=== PATIENT | female | born 1945 | race Asian ===

== ENCOUNTER 2018-12-30 10:25 | Inpatient (IN) ==
--- OUTSIDE RECORDS SUMMARY | 2018-12-30 10:28 | External Medical Summary | Continuity of Care Document ---
:1945 Author Name Benjamín Johnson, Provider Address Unavailable Unavailable , Care Team Providers Name Role Phone Sohail Vasques [email or web address], UNKNOWN Unavailable Unavailable Unavailable Unavailable Unavailable Problems SOB (shortness of breath) (786.05) (R06.02) Cough (786.2) (R05) Pulmonary nodule (793.11) (R91.1) Multiple thyroid nodules (241.1) (E04.2) Osteoporosis, unspecified osteoporosis t ype, unspecified pathological fracture presence (733.00) (M81.0) Hyperlipidemia, unspecified hyperlipidemia type (272.4) (E78 .5) Multiple pulmonary nodules (793.19) (R91.8) Aspiration pneumonia (507.0) (J69.0) Weight loss (783.21) (R63.4) Allergies and Adverse Reactions No Known Allergies (Allergy) Medications No Reported Medications Refills: 0 Procedures History of esophagectomy Status: Complet ed Immunizations Prevnar 13 Intramuscular Suspension On: 13-Mar-2018 14:28 Lot #: [id number], [employer] [place] Social History - Smoking Status Never smoker Plan of Treatment Planned Observations Planned Goals not documented Results No Known Results Results not documented Encounters Appointment; Sohail Vasques M.D. 08-May-2018 13:30 Encounter Diagnosis: Problem not documented Appointment; Sohail Vasques M.D. 13-Mar-2018 13:00 Encounter Diagnosis: Problem not documented
[2018-12-30] MEDS ORDERED: ONDANSETRON INJ 2 MG/ML 2 ML VIAL IV STA (11:20)
[2018-12-30] MEDS ORDERED: SODIUM CHLORIDE 0.9% 1000ML 1,000 ML IV ONE (11:20)
[2018-12-30] MEDS ORDERED: MoRPHine SULFATE 2 MG/ML CARP IV STA (11:24)
[2018-12-30 11:28] LABS: Basophils # (auto) 0.02 K/uL (0-0.2); Basophils % (auto) 0.2 %; Hematocrit (blood only) 41.8 % (37-47); Hemoglobin 13.9 g/dL (12.0-16.0); Immature Granulocytes # (auto) 0.04 K/uL (0.00-0.02); Immature Granulocytes % (auto) 0.3 %; Lymphocytes # (auto) 0.62 K/uL (1.2-3.4); Lymphocytes % (auto) 4.8 %; Mean Corpuscular Hgb Conc 33.3 g/dL (32-36); Mean Corpuscular Volume 97.2 fL (80-100); Mean Platelet Volume 10.8 fL (7.4-10.4); Monocytes # (auto) 0.66 K/uL (0.11-0.59); Monocytes % (auto) 5.1 %; Neutrophils # (auto) 11.51 K/uL (1.4-6.5); Neutrophils % (auto) 89.6 %; Platelet Count 216 K/uL (130-400); RDW Coefficient of Variation 14.2 % (11.5-14.5); RDW Standard Deviation 50.4 fL (36.4-46.3); White Blood Count 12.85 K/uL (4.8-10.8)
[2018-12-30 11:33] LABS: Appearance Urine Clear (Clear); Bacteria Urine Automated Negative (Negative); Bilirubin Urine Negative (Negative); Blood Urine Negative (Negative); Color Urine Dark Yellow; Epithelial Cell Urine Auto >30 /lpf (0-5); Glucose Urine UA Trace (Negative); Ketones Urine Trace (Negative); Leukocyte Esterase Urine Negative (Negative); Nitrite Urine Negative (Negative); Protein Urine 2+ (Negative); RBC Urine Automated 0-4 /hpf (0-4); Specific Gravity Urine 1.029 (1.000-1.030); Urobilinogen Urine Negative (Negative); pH Urine 5.5 (4.5-7.5)
[2018-12-30 12:09] LABS: Alanine Aminotransferase 51 U/L (12-78); Albumin Globulin Ratio 0.9 (0.9-2); Albumin Level 3.9 gm/dl (3.4-5.0); Alkaline Phosphatase 65 U/L (45-117); Aspartate Aminotransferase 25 U/L (15-37); BUN Creatinine Ratio 21.3 (10-20); Bilirubin,Total 1.2 mg/dl (0.2-1); Blood Urea Nitrogen 20 mg/dl (7-18); Carbon Dioxide 24 mmol/L (21-32); Chloride 108 mmol/L (98-107); Est GFR (African American) 71.7; Est GFR (Non-African American) 61.8; Globulin 4.4 gm/dl (2.5-4.0); Glucose 157 mg/dl (70-99); Potassium 4.1 mmol/L (3.5-5.1); Sodium 140 mmol/L (136-145); Total Protein 8.4 gm/dl (6.4-8.2)
[2018-12-30] MEDS ORDERED: IOVERSOL 100ml IV PRN (12:54)
--- NOTE | 2018-12-30 13:20 | CT Scan Report ---
CT abd pelvis IV con only CLINICAL HISTORY: Diffuse abdominal pain ESOPHAGEAL CARCINOMA COMPARISON STUDY: Temperature 2018 TECHNIQUE: The patient was scanned in a dynamic helical fashion during intravenous administration of 94 cc of Optiray 320. A dose lowering technique was utilized adhering to the principles of ALARA. CT DOSE: FINDINGS: Lower chest: There are postsurgical changes of esophagectomy and gastric pull-through. The stomach is located within the left anterior mediastinum. There is respiratory motion artifact. There are tree-i n-bud opacities within the right middle lobe and left lower lobe, likely inflammatory/postinflammator y. Liver: There are multiple water density hepatic lesions consistent with cysts. Gallbladder: Unremarkable. Spleen: Normal in size and attenuation. Pancreas: No focal pancreatic masses are visualized. The pancreatic duct is at the upper limits of no rmal in diameter measuring 3 mm. Adrenal glands: Unremarkable. Kidneys: There are bilateral renal hypodensities, unchanged from the prior study and most consistent with cysts. There is mild fullness of each renal collecting system. There is a 5 mm proximal left ure teral calculus. There are probable nonobstructing right renal calculi. Bowel: There is a distended duodenum and proximal jejunum with equalization. There is a proximal jeju nal transition zone with an area of prominent mucosal enhancement. The findings are indicative of a h igh-grade proximal jejunal obstruction. The ileum and mid and distal jejunum are of normal caliber. Peritoneum: There is trace ascites. There is no free intraperitoneal air. Vasculature: The abdominal aorta is normal in course and caliber. Adenopathy: None. Pelvic viscera: The bladder, and pelvic viscera are unremarkable. Skeletal structures: No destructive osseous lesions are seen. IMPRESSION: 1. High-grade partial bowel obstruction at the level of the proximal jejunum. 2. Postsurgical changes of esophagectomy with gastric pull-through. 3. Tree-in-bud opacities within the right middle lobe and left lower lobe, likely inflammatory/postin flammatory 4. 5 mm proximal left ureteral calculus with mild secondary obstructive changes Electronically signed by: Kayden Hernandez M.D. 12/30/2018 1:19 PM
--- NOTE | 2018-12-30 14:54 | History & Physical Report ---
Date of Service December 30, 2018 Assessment & Plan (1) Small bowel obstruction: High-grade proximal jejunal obstruction seen on CT scan. Keep n.p.o. Place NG tube if vomiting recurs. IV fluids. Surgical consultation Present on Admission?: Yes (2) History of esophageal cancer: Status post distal esophagectomy with pull-through in October 2017 in [facility]. Present on Admission?: Yes (3) DVT prophylaxis: Lovenox subcu History of Present Illness Chief Complaint: Abdominal pain, nausea, intermittent vomiting Primary Care Provider: Cesar Michelle MD 73-year-old female of descent who developed abdominal discomfort in the upper abdominal region yesterday associated with nausea. She did vomit a small amount several times. She had a normal bowel movement yesterday. No hemat emesis melena or hematochezia. She has had previous distal esophagectomy with gastric pull-through in [facility] in October 2017. She was hospitalized last fall for a partial small bowel obstruction. CT scan today reveals evidence of high-grade small bowel obstruction in the region of the proximal jejunum. The patient has not vomited since she has been in our ED and NG tube has not been placed at this time. Surgical consultation has been requested. She will be kept n.p.o. and given IV fluids. Hopefully the small bowel obstruction will resolve spontaneously without surgery. Allergies Allergy/AdvReac Type Severity Reaction Status Date / Time clindamycin AdvReac Severe Unknown Unverified 12/30/18 11:47 Home Medications Home Medications Medication Instructions Recorded Confirmed Type vitamin J92-srqmd acid 1 tab PO DAILY 12/30/18 12/30/18 History Past Med/Surg History Medical History Esophageal carcinoma Status post esophagectomy in October 2017 HLD (hyperlipidemia) Multiple lung nodules Multiple thyroid nodules Benign per biopsy results Osteoporosis ST segment changes on electrocardiogram Small bowel obstruction Surgical History History of esophagectomy October 2017, entire [facility] Social History Preferred Language: Mandarin Icelandic 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 Nausea. Intermittent vomiting. No diarrhea. No melena or hematochezia or hematemesis -no urinary retention, no urinary incontinence, no dysuria, no hematuria Musculoskeletal-no joint pain, no muscle tenderness Skin-no bruising, no rashes, no pruritus Neuro-no isolated weakness, no paresthesia, no weakness Psych-no depression, no anxiety Physical Exam Physical Exam: General-alert and oriented x3, no fevers, no chills HEENT-head atraumatic and normocephalic, TMs intact bilaterally, pupils equal and reactive to light, extraocular muscles intact Neck-no lymphadenopathy or thyromegaly, trachea midline Chest-clear to auscultation percussion. No rales wheezing or rhonchi Cardiac-regular rate and rhythm, normal S1 and S2, no murmurs Abdomen-normal bowel sounds, no hepatosplenomegaly. Mild epigastric and right upper quadrant tenderness. No palpable masses. No rebound or guarding Extremities-no cyanosis, clubbing, or edema Neuro-cranial nerves II through XII intact, motor and sensory function within normal limits, strength symmetrical 5/5, no focal deficits Psych-normal affect, normal mood Results & Data Vital Signs (Past 12 Hours) Vital Signs Temp Pulse Resp BP Pulse Ox 12/30/18 13:40 80 23 99 12/30/18 13:30 80 21 98 12/30/18 13:20 77 15 98 12/30/18 13:10 83 22 98 12/30/18 13:02 85 14 130/73 98 12/30/18 13:01 85 21 12/30/18 12:40 83 21 100 12/30/18 12:30 81 22 100 12/30/18 12:20 78 19 100 12/30/18 12:10 80 21 99 12/30/18 12:00 77 22 136/76 99 12/30/18 11:50 75 16 96 12/30/18 11:40 77 14 98 12/30/18 11:33 72 25 H 97 12/30/18 11:31 73 14 135/82 97 12/30/18 10:44 37.0 C 77 20 147/84 H 98 Laboratory Results 12/30/18 11:17 12/30/18 11:17 PG Care Time/CCT Total # of Minutes Spent Total Time Spent with Patient: Total time spent is greater than 50% in coordination of care (as documented) at patient's floor/unit and/or counseling patient:
--- NOTE | 2018-12-30 15:31 | Surgery Consultation ---
Date of Consultation December 30, 2018 Assessment & Plan (1) Small bowel obstruction: 73 year-old female with history of esophagectomy with gastric pull through in 10/2017 and history of SBO in 02/2018 who presented to emergency department with complaint of abdominal pain, bloating, n/v for [address] scan showing high grade small bowel obstruction with transition point in the proximal jejunum with enhancement of mucosa (similar findings to CT scan in 02/2018) treated conservatively with last SBO. Mild leukocytosis of 12.85K, vitals stable, abdomen soft, mildly distended, tender in epigastrium, no rigidity, guarding, rebound, or peritonitis. Plan: Recommend conservative treatment for SBO: NPO, bowel rest, IV fluids, IV pain management prn, IV Zofran prn nausea. Would recommend NGT if any further vomiting or increase in abdominal distention. follow labs while NPO SCDs and Lovenox for DVT prophylaxis continue medical management will follow along. Dr. Glover has seen and examined pt, agrees with above. Supervising Physician Co-Signing Physician Notes I interviewed and examined this patient I agree with the above note. This is the second episode of this in 9 months. The first was successfully treated with conservative measures and I would attempt that now. The patient and her stated that if surgery is necessary they would prefer to go to 1 of the medical centers. History of Present Illness Reason for Consultation: High grade SBO Requesting Physician: Dr. Posadas Attending Physician: Dr. Carrion History of Present Illness Ambar is a pleasant 73 year-old female who speaks very little Syriac who presented to emergency department with complaint of abdominal pain, bloating, nausea and vomiting that began yesterday morning. Friend in room who helped to interpret. Pain located in upper mid abdomen. Had bowel movement yesterday morning prior to pain starting. Has not had bowel movement or passed any gas since. Has history of esophagectomy with gastric pull through in October of 2017 in [facility]. She states she did not have cancer but she had really bad acid reflux and if left alone would turn into cancer. Also has history of SBO in February of last year in which she was admitted and treated conservatively with NGT, bowel rest, and pain management.( per electronic records). CT scan in February showed high grade SBO at proximal jejunum with hyperenhancement and distended duodenum. CT scan of abdomen and pelvis today showing similar findings. She has mild leukocytosis of 12.85K. H&H stable. Vital stable. Pain on presentation was about 9/10. No current pain after pain medication administration. No further nausea or vomiting. Comfortable currently. Allergies Allergy/AdvReac Type Severity Reaction Status Date / Time clindamycin AdvReac Severe Unknown Unverified 12/30/18 11:47 Home Medications Home Medications Medication Instructions Recorded Confirmed Type vitamin K88-pbyhs acid 1 tab PO DAILY 12/30/18 12/30/18 History Patient History Medical History History of esophageal cancer (Chronic) Small bowel obstruction (Acute) Esophageal carcinoma Status post esophagectomy in October 2017 HLD (hyperlipidemia) Multiple lung nodules Multiple thyroid nodules Benign per biopsy results Osteoporosis ST segment changes on electrocardiogram Small bowel obstruction Surgical History History of esophagectomy October 2017, entire [facility] Social History Preferred Language: Mandarin Nigerian Communication Ability: Effective Communication Ability Comment: MOGL Communication Tools: IPad Cannon Crewmember Required: Yes, Video and Voice Beliefs That Will Affect Care: Orthodoxy Orthodoxy Beliefs: Church Current Living Situation: Alone Other Information That Helps Us Care for You: No Feels Safe at Home: Yes Safety Concerns: Feels Safe At This Time Smoking Status: Never smoker Do You Dip or Chew Tobacco: No Second Hand Exposure: No Tobacco Cessation Education Requested by Patient: No Hx Alcohol Use: No Hx Substance Use: No Review of Systems Review of Systems: All systems reviewed & are unremarkable except as noted in HPI & below Physical Exam Constitutional: WD/WN, vitals as above + thin Respiratory: normal respiratory effort; no respiratory distress Cardiovascular: RRR, no murmur, no edema Chest (Breasts): Additional Comments: midline sternotomy scar present Gastrointestinal (Abdomen): Inspection/Auscultation: + abdomen distended (mildly distended); + abnormal bowel sounds (hypoactive) Percussion/Palpation: + abdomen tender (epigastrium) and abdomen soft; no guarding and abdomen not rigid Skin: no rashes, warm and dry Psychiatric: A+Ox3, euthymic affect Results & Data Vital Signs (Past 12 Hours) Vital Signs Temp Pulse Resp BP Pulse Ox 12/30/18 15:20 76 18 98 12/30/18 15:10 78 19 98 12/30/18 15:00 77 26 H 132/72 96 12/30/18 14:50 78 22 99 12/30/18 14:40 77 24 100 12/30/18 14:30 77 18 97 12/30/18 14:20 79 18 99 12/30/18 14:10 78 16 100 12/30/18 14:00 79 17 137/78 100 12/30/18 13:50 78 18 100 12/30/18 13:40 80 23 99 12/30/18 13:30 80 21 98 12/30/18 13:20 77 15 98 12/30/18 13:10 83 22 98 12/30/18 13:02 85 14 130/73 98 12/30/18 13:01 85 21 12/30/18 12:40 83 21 100 12/30/18 12:30 81 22 100 12/30/18 12:20 78 19 100 12/30/18 12:10 80 21 99 12/30/18 12:00 77 22 136/76 99 12/30/18 11:50 75 16 96 12/30/18 11:40 77 14 98 12/30/18 11:33 72 25 H 97 12/30/18 11:31 73 14 135/82 97 12/30/18 10:44 37.0 C 77 20 147/84 H 98 Laboratory Results 12/30/18 12/30/18 12/30/18 Range/Units 11:17 11:17 11:17 WBC 12.85 H (4.8-10.8) K/uL RBC 4.30 (4.2-5.4) M/uL Hgb 13.9 (12.0-16.0) g/dL Hct 41.8 (37-47) % MCV 97.2 (80-100) fL MCH 32.3 (25-34) pg MCHC 33.3 (32-36) g/dL RDW Std Deviation 50.4 H (36.4-46.3) fL RDW Coeff of Jimenez 14.2 (11.5-14.5) % Plt Count 216 (130-400) K/uL MPV 10.8 H (7.4-10.4) fL Immature Gran % (Auto) 0.3 % Neut % (Auto) 89.6 % Lymph % (Auto) 4.8 % Archer % (Auto) 5.1 % Eos % (Auto) 0.0 % Baso % (Auto) 0.2 % Immature Gran # (Auto) 0.04 H (0.00-0.02) K/uL Neut # (Auto) 11.51 H (1.4-6.5) K/uL Lymph # (Auto) 0.62 L (1.2-3.4) K/uL Archer # (Auto) 0.66 H (0.11-0.59) K/uL Eos # (Auto) 0.00 (0-0.5) K/uL Baso # (Auto) 0.02 (0-0.2) K/uL Sodium 140 (136-145) mmol/L Potassium 4.1 (3.5-5.1) mmol/L Chloride 108 H (98-107) mmol/L Carbon Dioxide 24 (21-32) mmol/L Anion Gap 8.0 (3-11) BUN 20 H (7-18) mg/dl Creatinine 0.93 (0.6-1.2) mg/dl Est Cr Clr Drug Dosing Not Reportable Est GFR ( Amer) 71.7 Est GFR (Non-Af Amer) 61.8 BUN/Creatinine Ratio 21.3 H (10-20) Glucose 157 H (70-99) mg/dl Calcium 9.0 (8.5-10.1) mg/dl Total Bilirubin 1.2 H (0.2-1) mg/dl AST 25 (15-37) U/L ALT 51 (12-78) U/L Alkaline Phosphatase 65 (45-117) U/L Total Protein 8.4 H (6.4-8.2) gm/dl Albumin 3.9 (3.4-5.0) gm/dl Globulin 4.4 H (2.5-4.0) gm/dl Albumin/Globulin Ratio 0.9 (0.9-2) Lipase 604 H (73-393) U/L Specimen Hemolysis Urine Color Dark Yellow Urine Appearance Clear (Clear) Urine pH 5.5 (4.5-7.5) Ur Specific [place] 1.029 (1.000-1.030) Urine Protein 2+ H (Negative) Urine Glucose (UA) Trace H (Negative) Urine Ketones Trace H (Negative) Urine Blood Negative (Negative) Urine Nitrite Negative (Negative) Urine Bilirubin Negative (Negative) Urine Urobilinogen Negative (Negative) Ur Leukocyte Esterase Negative (Negative) Urine WBC (Auto) 5-10 H (0-5) /hpf Urine RBC (Auto) 0-4 (0-4) /hpf U Hyaline Cast (Auto) 10-30 H (0-5) /lpf U Epithel Cells (Auto) >30 H (0-5) /lpf Urine Bacteria (Auto) Negative (Negative) Diagnostic Findings CT abd pelvis IV con only CLINICAL HISTORY: Diffuse abdominal pain ESOPHAGEAL CARCINOMA COMPARISON STUDY: Temperature 2018 TECHNIQUE: The patient was scanned in a dynamic helical fashion during intravenous administration of 94 cc of Optiray 320. A dose lowering technique was utilized adhering to the principles of ALARA. CT DOSE: FINDINGS: Lower chest: There are postsurgical changes of esophagectomy and gastric pull- through. The stomach is located within the left anterior mediastinum. There is respiratory motion artifact. There are tree-in-bud opacities within the right middle lobe and left lower lobe, likely inflammatory/postinflammatory. Liver: There are multiple water density hepatic lesions consistent with cysts. Gallbladder: Unremarkable. Spleen: Normal in size and attenuation. Pancreas: No focal pancreatic masses are visualized. The pancreatic duct is at the upper limits of normal in diameter measuring 3 mm. Adrenal glands: Unremarkable. Kidneys: There are bilateral renal hypodensities, unchanged from the prior study and most consistent with cysts. There is mild fullness of each renal collecting system. There is a 5 mm proximal left ureteral calculus. There are probable non obstructing right renal calculi. Bowel: There is a distended duodenum and proximal jejunum with equalization. There is a proximal jejunal transition zone with an area of prominent mucosal enhancement. The findings are indicative of a high-grade proximal jejunal obstruction. The ileum and mid and distal jejunum are of normal caliber. Peritoneum: There is trace ascites. There is no free intraperitoneal air. Vasculature: The abdominal aorta is normal in course and caliber. Adenopathy: None. Pelvic viscera: The bladder, and pelvic viscera are unremarkable. Skeletal structures: No destructive osseous lesions are seen. IMPRESSION: 1. High-grade partial bowel obstruction at the level of the proximal jejunum. 2. Postsurgical changes of esophagectomy with gastric pull-through. 3. Tree-in-bud opacities within the right middle lobe and left lower lobe, likely inflammatory/postinflammatory 4. 5 mm proximal left ureteral calculus with mild secondary obstructive changes
[2018-12-30] MEDS ORDERED: ONDANSETRON INJ 2 MG/ML 2 ML VIAL IV PRN (15:44)
[2018-12-30 16:28] LABS: Prothrombin Time 9.8 Seconds (9.0-12.0)
--- NOTE | 2018-12-30 17:08 | Emergency Department Note ---
Entered by Yvonne Pang acting as a scribe for History of Present Illness General Chief complaint: Abdominal Pain Stated complaint: PANCREAS INFECTION Source: patient Mode of arrival: ambulatory Limitations: no limitations History of Present Illness Onset (ago): day(s) 1 Location: abdomen Radiation: back Severity: similar to prior episodes (pancreatitis) Pain Consistency: + other (worsening) Maximum Pain Intensity: 8 Quality: + other (discomfort) Associated symptoms: + nausea/vomiting (The patient complains of vomiting. ) and + other (The patient complains of abdomianl pain. The patient denies pain with urination, burning with urination, and hematochezia. ) The patient is a 73 year old female with a history of esophageal carcinoma, hyperlipidemia, osteoporosis, multiple thyroid nodules, multiple lung nodules, aspiration into lower respiratory tract, DVT prophylaxis, and partial bowl obstruction who presents to the ED with complaints of worsening abdominal pain that onset 1 day ago. The patient presents with her friend who translated for her. Per friend, the patient started feeling abdominal discomfort yesterday m orning. She mentions that the pain radiates into her back. She states that the pain increased to an 8 or 9 in severity until she vomited later at night. She reports that she has vomited many times since. The patient states that these symptoms are the same as a past episode of pancreatitis. The patient denies pain with urination, burning with urination, and hematochezia. The patient states that she had her entire esophagus removed one year ago. Home Medications Home Medications Medication Instructions Recorded Confirmed Type vitamin [id number] acid 1 tab PO DAILY 12/30/18 12/30/18 History Allergies Allergy/AdvReac Type Severity Reaction Status Date / Time clindamycin AdvReac Severe Unknown Unverified 12/30/18 11:47 Past Med/Surg History Medical History History of esophageal cancer (Chronic) Small bowel obstruction (Acute) Esophageal carcinoma Status post esophagectomy in October 2017 HLD (hyperlipidemia) Multiple lung nodules Multiple thyroid nodules Benign per biopsy results Osteoporosis ST segment changes on electrocardiogram Small bowel obstruction Surgical History History of esophagectomy October 2017, entire [facility] Social History Preferred Language: Mandarin English Communication Ability: Effective Communication Ability Comment: Mandarin Communication Tools: [employer] Professor Required: Yes, Video and Voice Beliefs That Will Affect Care: Caodaism Caodaism Beliefs: Jewish Current Living Situation: Alone Other Information That Helps Us Care for You: No Feels Safe at Home: Yes Safety Concerns: Feels Safe At This Time Smoking Status: Never smoker Do You Dip or Chew Tobacco: No Second Hand Exposure: No Tobacco Cessation Education Requested by Patient: No Hx Alcohol Use: No Hx Substance Use: No Review of Systems See HPI for pertinent positives & negatives. and A total of 10 systems reviewed and were otherwise negative Physical Exam Vital Signs Vital Signs - 24 hr 12/30/18 10:44 12/30/18 11:31 12/30/18 11:33 Temperature 37.0 C Temperature Source Oral Sepsis Recent Fever Within 48 Hours No Sepsis New/Unexplained Change in Mental Status No Sepsis Action Taken by Nursing No Action Required Pulse Rate 77 73 72 Pulse Rate from SpO2 Sensor 73 74 Pulse Rhythm Regular Pulse Strength Normal Respiratory Rate 20 14 25 H Respiratory Effort / Characteristics Non-Labored Spontaneous Respiratory Depth Normal Respiratory Pattern Regular Blood Pressure 147/84 H 135/82 Blood Pressure Mean 105 99 Blood Pressure Position Sitting Pulse Oximetry 98 97 97 Oxygen Delivery Method Room Air Room Air 12/30/18 11:40 12/30/18 11:50 12/30/18 12:00 Temperature Temperature Source Sepsis Recent Fever Within 48 Hours Sepsis New/Unexplained Change in Mental Status Sepsis Action Taken by Nursing Pulse Rate 77 75 77 Pulse Rate from SpO2 Sensor 77 75 77 Pulse Rhythm Pulse Strength Respiratory Rate 14 16 22 Respiratory Effort / Characteristics Respiratory Depth Respiratory Pattern Blood Pressure 136/76 Blood Pressure Mean 96 Blood Pressure Position Pulse Oximetry 98 96 99 Oxygen Delivery Method 12/30/18 12:10 12/30/18 12:20 12/30/18 12:30 Temperature Temperature Source Sepsis Recent Fever Within 48 Hours Sepsis New/Unexplained Change in Mental Status Sepsis Action Taken by Nursing Pulse Rate 80 78 81 Pulse Rate from SpO2 Sensor 80 79 81 Pulse Rhythm Pulse Strength Respiratory Rate 21 19 22 Respiratory Effort / Characteristics Respiratory Depth Respiratory Pattern Blood Pressure Blood Pressure Mean Blood Pressure Position Pulse Oximetry 99 100 100 Oxygen Delivery Method 12/30/18 12:40 12/30/18 13:01 12/30/18 13:02 Temperature Temperature Source Sepsis Recent Fever Within 48 Hours Sepsis New/Unexplained Change in Mental Status Sepsis Action Taken by Nursing Pulse Rate 83 85 85 Pulse Rate from SpO2 Sensor 82 85 Pulse Rhythm Pulse Strength Respiratory Rate 21 21 14 Respiratory Effort / Characteristics Respiratory Depth Respiratory Pattern Blood Pressure 130/73 Blood Pressure Mean 92 Blood Pressure Position Pulse Oximetry 100 98 Oxygen Delivery Method 12/30/18 13:10 12/30/18 13:20 12/30/18 13:30 Temperature Temperature Source Sepsis Recent Fever Within 48 Hours Sepsis New/Unexplained Change in Mental Status Sepsis Action Taken by Nursing Pulse Rate 83 77 80 Pulse Rate from SpO2 Sensor 83 77 79 Pulse Rhythm Pulse Strength Respiratory Rate 22 15 21 Respiratory Effort / Characteristics Respiratory Depth Respiratory Pattern Blood Pressure Blood Pressure Mean Blood Pressure Position Pulse Oximetry 98 98 98 Oxygen Delivery Method 12/30/18 13:40 12/30/18 13:50 12/30/18 14:00 Temperature Temperature Source Sepsis Recent Fever Within 48 Hours Sepsis New/Unexplained Change in Mental Status Sepsis Action Taken by Nursing Pulse Rate 80 78 79 Pulse Rate from SpO2 Sensor 80 78 79 Pulse Rhythm Pulse Strength Respiratory Rate 23 18 17 Respiratory Effort / Characteristics Respiratory Depth Respiratory Pattern Blood Pressure 137/78 Blood Pressure Mean 97 Blood Pressure Position Pulse Oximetry 99 100 100 Oxygen Delivery Method 12/30/18 14:10 12/30/18 14:20 12/30/18 14:30 Temperature Temperature Source Sepsis Recent Fever Within 48 Hours Sepsis New/Unexplained Change in Mental Status Sepsis Action Taken by Nursing Pulse Rate 78 79 77 Pulse Rate from SpO2 Sensor 78 80 77 Pulse Rhythm Pulse Strength Respiratory Rate 16 18 18 Respiratory Effort / Characteristics Respiratory Depth Respiratory Pattern Blood Pressure Blood Pressure Mean Blood Pressure Position Pulse Oximetry 100 99 97 Oxygen Delivery Method 12/30/18 14:40 12/30/18 14:50 Temperature Temperature Source Sepsis Recent Fever Within 48 Hours Sepsis New/Unexplained Change in Mental Status Sepsis Action Taken by Nursing Pulse Rate 77 78 Pulse Rate from SpO2 Sensor 78 78 Pulse Rhythm Pulse Strength Respiratory Rate 24 22 Respiratory Effort / Characteristics Respiratory Depth Respiratory Pattern Blood Pressure Blood Pressure Mean Blood Pressure Position Pulse Oximetry 100 99 Oxygen Delivery Method GENERAL: Lying in bed holding abdomen, disheveled, holding abdomen. EYE EXAM: Normal conjunctiva. OROPHARYNX: no exudate, no erythema, lips, buccal mucosa, and tongue normal and mucous membranes are moist NECK: supple, no nuchal rigidity, no adenopathy, non-tender LUNGS: Clear to auscultation. Normal chest wall mechanics HEART: no murmurs, S1 normal and S2 normal ABDOMEN: abdomen soft, tenderness to palpation throughout abdomen, normo-active bowel sounds, no masses, no rebound or guarding. BACK: Back is symmetrical on inspection and there is no deformity, no midline tenderness, no CVA tenderness. SKIN: no rashes and no bruising UPPER EXTREMITIES: upper extremities are grossly normal. LOWER EXTREMITIES: No pitting edema. NEURO EXAM: Normal sensorium, cranial nerves II-XII grossly intact, normal speech, no gross weakness of arms, no gross weakness of legs. Course 1111: Past medical records reviewed. The patient was evaluated in room C03. A complete history and physical examination was performed. 1124: The patient decline blood transfusions and blood draw for type and screen. 1350: [facility] She will evaluate the patient for further management. Consultations Consultation #1: 1350: I [facility] the [facility]. She will evaluate the patient for further management. Time: 13:50 Administered Medications Ioversol (Optiray 320 100ml) 94 ml IV ONCE PRN PRN Reason: Interaction Checking Stop: 01/03/19 12:53 Last Admin: 12/30/18 12:54 Dose: 94 ml Documented by: [id number] Discontinued Medications Sodium Chloride (Nss 1000ml) 1,000 mls @ 999 mls/hr IV .Q1H1M ONE Stop: 12/30/18 12:20 Last Infusion: 12/30/18 12:38 Dose: 0 mls/hr Documented by: [id number] Admin: 12/30/18 11:25 Dose: 999 mls/hr Documented by: [id number] Morphine Sulfate (Morphine Sulfate) 2 mg IV NOW STA Stop: 12/30/18 11:25 Last Admin: 12/30/18 11:28 Dose: 2 mg Documented by: [id number] Ondansetron HCl (Zofran) 4 mg IV NOW STA Stop: 12/30/18 11:21 Last Admin: 12/30/18 11:26 Dose: 4 mg Documented by: [id number] Medical Decision Making Differential Diagnosis Differential diagnoses: Appendicitis, diverticulitis, PUD, biliary pathology, UTI, pancreatitis, obstruction, mesenteric ischemia, aortic pathology, infections, inflammatory bowel disease, renal colic, as well as others were entertained. Medical Records Attestation: I reviewed the patient's medical records. Home Medications Current Medication List: was personally reviewed by me Laboratory Data Attestation: I reviewed the patient's lab results. Result diagrams: 12/30/18 11:17 12/30/18 11:17 Lab Results 12/30/18 12/30/18 12/30/18 Range/Units 11:17 11:17 11:17 WBC 12.85 H (4.8-10.8) K/uL RBC 4.30 (4.2-5.4) M/uL Hgb 13.9 (12.0-16.0) g/dL Hct 41.8 (37-47) % MCV 97.2 (80-100) fL MCH 32.3 (25-34) pg MCHC 33.3 (32-36) g/dL RDW Std Deviation 50.4 H (36.4-46.3) fL RDW Coeff of Jimenez 14.2 (11.5-14.5) % Plt Count 216 (130-400) K/uL MPV 10.8 H (7.4-10.4) fL Immature Gran % (Auto) 0.3 % Neut % (Auto) 89.6 % Lymph % (Auto) 4.8 % Mccracken % (Auto) 5.1 % Eos % (Auto) 0.0 % Baso % (Auto) 0.2 % Immature Gran # (Auto) 0.04 H (0.00-0.02) K/uL Neut # (Auto) 11.51 H (1.4-6.5) K/uL Lymph # (Auto) 0.62 L (1.2-3.4) K/uL Mccracken # (Auto) 0.66 H (0.11-0.59) K/uL Eos # (Auto) 0.00 (0-0.5) K/uL Baso # (Auto) 0.02 (0-0.2) K/uL PT (9.0-12.0) Seconds INR (0.9-1.1) Sodium 140 (136-145) mmol/L Potassium 4.1 (3.5-5.1) mmol/L Chloride 108 H (98-107) mmol/L Carbon Dioxide 24 (21-32) mmol/L Anion Gap 8.0 (3-11) BUN 20 H (7-18) mg/dl Creatinine 0.93 (0.6-1.2) mg/dl Est Cr Clr Drug Dosing Not Reportable Est GFR ( Amer) 71.7 Est GFR (Non-Af Amer) 61.8 BUN/Creatinine Ratio 21.3 H (10-20) Glucose 157 H (70-99) mg/dl Calcium 9.0 (8.5-10.1) mg/dl Total Bilirubin 1.2 H (0.2-1) mg/dl AST 25 (15-37) U/L ALT 51 (12-78) U/L Alkaline Phosphatase 65 (45-117) U/L Total Protein 8.4 H (6.4-8.2) gm/dl Albumin 3.9 (3.4-5.0) gm/dl Globulin 4.4 H (2.5-4.0) gm/dl Albumin/Globulin Ratio 0.9 (0.9-2) Lipase 604 H (73-393) U/L Specimen Hemolysis Urine Color Dark Yellow Urine Appearance Clear (Clear) Urine pH 5.5 (4.5-7.5) Ur Specific Brewster 1.029 (1.000-1.030) Urine Protein 2+ H (Negative) Urine Glucose (UA) Trace H (Negative) Urine Ketones Trace H (Negative) Urine Blood Negative (Negative) Urine Nitrite Negative (Negative) Urine Bilirubin Negative (Negative) Urine Urobilinogen Negative (Negative) Ur Leukocyte Esterase Negative (Negative) Urine WBC (Auto) 5-10 H (0-5) /hpf Urine RBC (Auto) 0-4 (0-4) /hpf U Hyaline Cast (Auto) 10-30 H (0-5) /lpf U Epithel Cells (Auto) >30 H (0-5) /lpf Urine Bacteria (Auto) Negative (Negative) 12/30/18 Range/Units 11:18 WBC (4.8-10.8) K/uL RBC (4.2-5.4) M/uL Hgb (12.0-16.0) g/dL Hct (37-47) % MCV (80-100) fL MCH (25-34) pg MCHC (32-36) g/dL RDW Std Deviation (36.4-46.3) fL RDW Coeff of Jimenez (11.5-14.5) % Plt Count (130-400) K/uL MPV (7.4-10.4) fL Immature Gran % (Auto) % Neut % (Auto) % Lymph % (Auto) % Mccracken % (Auto) % Eos % (Auto) % Baso % (Auto) % Immature Gran # (Auto) (0.00-0.02) K/uL Neut # (Auto) (1.4-6.5) K/uL Lymph # (Auto) (1.2-3.4) K/uL Mccracken # (Auto) (0.11-0.59) K/uL Eos # (Auto) (0-0.5) K/uL Baso # (Auto) (0-0.2) K/uL PT 9.8 (9.0-12.0) Seconds INR 1.0 (0.9-1.1) Sodium (136-145) mmol/L Potassium (3.5-5.1) mmol/L Chloride (98-107) mmol/L Carbon Dioxide (21-32) mmol/L Anion Gap (3-11) BUN (7-18) mg/dl Creatinine (0.6-1.2) mg/dl Est Cr Clr Drug Dosing Est GFR ( Amer) Est GFR (Non-Af Amer) BUN/Creatinine Ratio (10-20) Glucose (70-99) mg/dl Calcium (8.5-10.1) mg/dl Total Bilirubin (0.2-1) mg/dl AST (15-37) U/L ALT (12-78) U/L Alkaline Phosphatase (45-117) U/L Total Protein (6.4-8.2) gm/dl Albumin (3.4-5.0) gm/dl Globulin (2.5-4.0) gm/dl Albumin/Globulin Ratio (0.9-2) Lipase (73-393) U/L Specimen Hemolysis Urine Color Urine Appearance (Clear) Urine pH (4.5-7.5) Ur Specific Brewster (1.000-1.030) Urine Protein (Negative) Urine Glucose (UA) (Negative) Urine Ketones (Negative) Urine Blood (Negative) Urine Nitrite (Negative) Urine Bilirubin (Negative) Urine Urobilinogen (Negative) Ur Leukocyte Esterase (Negative) Urine WBC (Auto) (0-5) /hpf Urine RBC (Auto) (0-4) /hpf U Hyaline Cast (Auto) (0-5) /lpf U Epithel Cells (Auto) (0-5) /lpf Urine Bacteria (Auto) (Negative) Imaging Data Radiologist's Impression: Radiology results as stated below per my review and the radiologist's interpretation: CT abd pelvis IV con only CLINICAL HISTORY: Diffuse abdominal pain ESOPHAGEAL CARCINOMA COMPARISON STUDY: Temperature 2018 TECHNIQUE: The patient was scanned in a dynamic helical fashion during intravenous administration of 94 cc of Optiray 320. A dose lowering technique was utilized adhering to the principles of ALARA. CT DOSE: FINDINGS: Lower chest: There are postsurgical changes of esophagectomy and gastric pull- through. The stomach is located within the left anterior mediastinum. There is respiratory motion artifact. There are tree-in-bud opacities within the right middle lobe and left lower lobe, likely inflammatory/postinflammatory. Liver: There are multiple water density hepatic lesions consistent with cysts. Gallbladder: Unremarkable. Spleen: Normal in size and attenuation. Pancreas: No focal pancreatic masses are visualized. The pancreatic duct is at the upper limits of normal in diameter measuring 3 mm. Adrenal glands: Unremarkable. Kidneys: There are bilateral renal hypodensities, unchanged from the prior study and most consistent with cysts. There is mild fullness of each renal collecting system. There is a 5 mm proximal left ureteral calculus. There are probable nonobstructing right renal calculi. Bowel: There is a distended duodenum and proximal jejunum with equalization. There is a proximal jejunal transition zone with an area of prominent mucosal enhancement. The findings are indicative of a high-grade proximal jejunal obstruction. The ileum and mid and distal jejunum are of normal caliber. Peritoneum: There is trace ascites. There is no free intraperitoneal air. Vasculature: The abdominal aorta is normal in course and caliber. Adenopathy: None. Pelvic viscera: The bladder, and pelvic viscera are unremarkable. Skeletal structures: No destructive osseous lesions are seen. IMPRESSION: 1. High-grade partial bowel obstruction at the level of the proximal jejunum. 2. Postsurgical changes of esophagectomy with gastric pull-through. 3. Tree-in-bud opacities within the right middle lobe and left lower lobe, likely inflammatory/postinflammatory 4. 5 mm proximal left ureteral calculus with mild secondary obstructive changes Electronically signed by: Kayden Hernandez M.D. 12/30/2018 1:19 PM Dictated: 12/30/18 1307 Transcribed: 12/30/18 1307 Blood Pressure Blood Pressure Findings: Normal blood pressure MDM Narrative Patient is a 73-year-old female who presents the ER for abdominal pain. Previous history of esophageal resection. IV was established blood work was obtained and showed a mild leukocytosis of 12.8 thousand. No significant anemia. INR is unremarkable. BMP along with LFTs bilirubin and lipase was remarkable at 600. UA contaminated with multiple epithelial cells. CT abdomen pelvis shows a high-grade bowel obstruction. Discussed with general surgery who recommended admission to the hospitalist. They recommended holding on NG tube as patient has no vomiting since being here. Discussed with the hospitalist and patient was updated at bedside as well as family and was admitted for high-grade small bowel obstruction to be evaluated by general surgery. Patient was given I V fluids Zofran and IV narcotics while in the ER and resting comfortably. Impression & Plan Small bowel obstruction, History of esophageal cancer, Acute epigastric pain Discharge Plan Visit Data *Final* Discharge Date/Time: 12/30/18 15:28 Chief Complaint: Abdominal Pain Stated Complaint: PANCREAS INFECTION ED Provider: Kevin Posadas Discharge Problem: Small bowel obstruction, History of esophageal cancer, Acute epigastric pain Patient Disposition: Admitted As Inpatient Discharge Instructions Interventions: ED Discharge Assessment Last Done: 12/30/18 15:28 The scribe's documentation has been prepared under my direction and personally reviewed by me in its entirety. I confirm that the note above accurately reflects all work, treatment, procedures, and medical decision making performed by me.
[2018-12-30] MEDS: SODIUM CHLORIDE 0.9% 1000ML 1,000 ML IV SCH (17:42)
[2018-12-30] MEDS ORDERED: ENOXAPARIN INJ 40 MG/0.4 ML SYR SQ SCH (20:00)
[2018-12-30] MEDS: FAMOTIDINE 20 MG in SYRINGE 3 ML IV SCH (20:39)
[2018-12-31] MEDS: SODIUM CHLORIDE 0.9% 1000ML 1,000 ML IV SCH ×3 (03:26→21:13)
[2018-12-31 07:41] LABS: Basophils # (auto) 0.02 K/uL (0-0.2); Basophils % (auto) 0.4 %; Eosinophils # (auto) 0.12 K/uL (0-0.5); Eosinophils % (auto) 2.3 %; Hematocrit (blood only) 31.9 % (37-47); Hemoglobin 10.2 g/dL (12.0-16.0); Immature Granulocytes # (auto) 0.01 K/uL (0.00-0.02); Immature Granulocytes % (auto) 0.2 %; Lymphocytes # (auto) 1.44 K/uL (1.2-3.4); Lymphocytes % (auto) 27.4 %; Mean Corpuscular Volume 97.6 fL (80-100); Mean Platelet Volume 10.4 fL (7.4-10.4); Monocytes # (auto) 0.41 K/uL (0.11-0.59); Monocytes % (auto) 7.8 %; Neutrophils # (auto) 3.25 K/uL (1.4-6.5); Neutrophils % (auto) 61.9 %; Platelet Count 145 K/uL (130-400); RDW Coefficient of Variation 14.2 % (11.5-14.5); RDW Standard Deviation 51.1 fL (36.4-46.3); Red Blood Count 3.27 M/uL (4.2-5.4); White Blood Count 5.25 K/uL (4.8-10.8)
[2018-12-31 08:16] LABS: BUN Creatinine Ratio 20.1 (10-20); Calcium 6.8 mg/dl (8.5-10.1); Creatinine Clr Calc Pharmacy 45.7 ml/min; Est GFR (Non-African American) 88.9; Potassium 3.5 mmol/L (3.5-5.1)
[2018-12-31] MEDS: FAMOTIDINE 20 MG in SYRINGE 3 ML IV SCH ×2 (08:43→21:14)
[2018-12-31 09:26] LABS: Albumin Level 2.6 gm/dl (3.4-5.0); Bilirubin Direct 0.2 mg/dl (0-0.2); Bilirubin,Total 0.9 mg/dl (0.2-1); Total Protein 5.6 gm/dl (6.4-8.2)
--- NOTE | 2018-12-31 10:39 | Surgery Progress Note ---
Date of Service December 31, 2018 Assessment & Plan (1) Small bowel obstruction: 73 year-old female with history of esophagectomy with gastric pull through in 10/2017 and history of SBO in 02/2018 who presented to emergency department with complaint of abdominal pain, bloating, n/v for [address] scan showing high grade small bowel obstruction with transition point in the proximal jejunum with enhancement of mucosa (similar findings to CT scan in 02/2018) treated conservatively with last SBO. Mild leukocytosis of 12.85K (resolved today), vitals stable, abdomen soft, mildly distended, tender in epigastrium, no rigidity, guarding, rebound, or peritonitis. Plan: Continue conservative treatment for SBO: NPO, IV fluids, IV pain management prn, IV Zofran prn nausea. May have clear liquids since passing flatus SCDs and Lovenox for DVT prophylaxis continue medical management will follow along. Dr. Glover has seen and examined pt, agrees with above. Supervising Physician Co-Signing Physician Notes Interviewed and examined this patient. She has begun to pass flatus. Her pain is decreased. Agree with continuing conservative measures. Subjective mild abdominal pain, better than yesterday no nausea or vomiting passing gas no bowel movement not hungry Physical Exam Constitutional: WD/WN, vitals as above + thin Respiratory: normal respiratory effort; no respiratory distress Gastrointestinal (Abdomen): Inspection/Auscultation: abdomen normal to inspection Percussion/Palpation: + abdomen tender (epigastric) and abdomen soft; no guarding and abdomen not rigid Skin: no rashes, warm and dry Psychiatric: Orientation: alert and oriented x 3 Results & Data Vital Signs (Past 12 Hours) Vital Signs Temp Pulse Resp BP Pulse Ox 12/31/18 07:12 36.9 C 65 15 106/67 96 12/30/18 23:38 37.0 C 68 16 92/52 L 94 Laboratory Results 12/31/18 12/31/18 12/31/18 Range/Units 07:14 07:14 07:14 WBC 5.25 (4.8-10.8) K/uL RBC 3.27 L (4.2-5.4) M/uL Hgb 10.2 L D (12.0-16.0) g/dL Hct 31.9 L (37-47) % MCV 97.6 (80-100) fL MCH 31.2 (25-34) pg MCHC 32.0 (32-36) g/dL RDW Std Deviation 51.1 H (36.4-46.3) fL RDW Coeff of Jimenez 14.2 (11.5-14.5) % Plt Count 145 (130-400) K/uL MPV 10.4 (7.4-10.4) fL Immature Gran % (Auto) 0.2 % Neut % (Auto) 61.9 % Lymph % (Auto) 27.4 % [place] % (Auto) 7.8 % Eos % (Auto) 2.3 % Baso % (Auto) 0.4 % Immature Gran # (Auto) 0.01 (0.00-0.02) K/uL Neut # (Auto) 3.25 (1.4-6.5) K/uL Lymph # (Auto) 1.44 (1.2-3.4) K/uL [place] # (Auto) 0.41 (0.11-0.59) K/uL Eos # (Auto) 0.12 (0-0.5) K/uL Baso # (Auto) 0.02 (0-0.2) K/uL PT (9.0-12.0) Seconds INR (0.9-1.1) Sodium 142 (136-145) mmol/L Potassium 3.5 (3.5-5.1) mmol/L Chloride 113 H (98-107) mmol/L Carbon Dioxide 27 (21-32) mmol/L Anion Gap 2.0 L (3-11) BUN 13 (7-18) mg/dl Creatinine 0.66 (0.6-1.2) mg/dl Est Cr Clr Drug Dosing 45.7 Est GFR ( Amer) 103.0 Est GFR (Non-Af Amer) 88.9 BUN/Creatinine Ratio 20.1 H (10-20) Glucose 87 (70-99) mg/dl Calcium 6.8 L D (8.5-10.1) mg/dl Total Bilirubin 0.9 (0.2-1) mg/dl Direct Bilirubin 0.2 (0-0.2) mg/dl AST 20 (15-37) U/L ALT 38 (12-78) U/L Alkaline Phosphatase 44 L (45-117) U/L Total Protein 5.6 L D (6.4-8.2) gm/dl Albumin 2.6 L (3.4-5.0) gm/dl Globulin (2.5-4.0) gm/dl Albumin/Globulin Ratio (0.9-2) Lipase 109 (73-393) U/L Specimen Hemolysis Urine Color Urine Appearance (Clear) Urine pH (4.5-7.5) Ur Specific [place] (1.000-1.030) Urine Protein (Negative) Urine Glucose (UA) (Negative) Urine Ketones (Negative) Urine Blood (Negative) Urine Nitrite (Negative) Urine Bilirubin (Negative) Urine Urobilinogen (Negative) Ur Leukocyte Esterase (Negative) Urine WBC (Auto) (0-5) /hpf Urine RBC (Auto) (0-4) /hpf U Hyaline Cast (Auto) (0-5) /lpf U Epithel Cells (Auto) (0-5) /lpf Urine Bacteria (Auto) (Negative) 12/30/18 12/30/18 12/30/18 Range/Units 11:18 11:17 11:17 WBC (4.8-10.8) K/uL RBC (4.2-5.4) M/uL Hgb (12.0-16.0) g/dL Hct (37-47) % MCV (80-100) fL MCH (25-34) pg MCHC (32-36) g/dL RDW Std Deviation (36.4-46.3) fL RDW Coeff of Jimenez (11.5-14.5) % Plt Count (130-400) K/uL MPV (7.4-10.4) fL Immature Gran % (Auto) % Neut % (Auto) % Lymph % (Auto) % [place] % (Auto) % Eos % (Auto) % Baso % (Auto) % Immature Gran # (Auto) (0.00-0.02) K/uL Neut # (Auto) (1.4-6.5) K/uL Lymph # (Auto) (1.2-3.4) K/uL [place] # (Auto) (0.11-0.59) K/uL Eos # (Auto) (0-0.5) K/uL Baso # (Auto) (0-0.2) K/uL PT 9.8 (9.0-12.0) Seconds INR 1.0 (0.9-1.1) Sodium 140 (136-145) mmol/L Potassium 4.1 (3.5-5.1) mmol/L Chloride 108 H (98-107) mmol/L Carbon Dioxide 24 (21-32) mmol/L Anion Gap 8.0 (3-11) BUN 20 H (7-18) mg/dl Creatinine 0.93 (0.6-1.2) mg/dl Est Cr Clr Drug Dosing Not Reportable Est GFR ( Amer) 71.7 Est GFR (Non-Af Amer) 61.8 BUN/Creatinine Ratio 21.3 H (10-20) Glucose 157 H (70-99) mg/dl Calcium 9.0 (8.5-10.1) mg/dl Total Bilirubin 1.2 H (0.2-1) mg/dl Direct Bilirubin (0-0.2) mg/dl AST 25 (15-37) U/L ALT 51 (12-78) U/L Alkaline Phosphatase 65 (45-117) U/L Total Protein 8.4 H (6.4-8.2) gm/dl Albumin 3.9 (3.4-5.0) gm/dl Globulin 4.4 H (2.5-4.0) gm/dl Albumin/Globulin Ratio 0.9 (0.9-2) Lipase 604 H (73-393) U/L Specimen Hemolysis Urine Color Dark Yellow Urine Appearance Clear (Clear) Urine pH 5.5 (4.5-7.5) Ur Specific [place] 1.029 (1.000-1.030) Urine Protein 2+ H (Negative) Urine Glucose (UA) Trace H (Negative) Urine Ketones Trace H (Negative) Urine Blood Negative (Negative) Urine Nitrite Negative (Negative) Urine Bilirubin Negative (Negative) Urine Urobilinogen Negative (Negative) Ur Leukocyte Esterase Negative (Negative) Urine WBC (Auto) 5-10 H (0-5) /hpf Urine RBC (Auto) 0-4 (0-4) /hpf U Hyaline Cast (Auto) 10-30 H (0-5) /lpf U Epithel Cells (Auto) >30 H (0-5) /lpf Urine Bacteria (Auto) Negative (Negative) 12/30/18 Range/Units 11:17 WBC 12.85 H (4.8-10.8) K/uL RBC 4.30 (4.2-5.4) M/uL Hgb 13.9 (12.0-16.0) g/dL Hct 41.8 (37-47) % MCV 97.2 (80-100) fL MCH 32.3 (25-34) pg MCHC 33.3 (32-36) g/dL RDW Std Deviation 50.4 H (36.4-46.3) fL RDW Coeff of Jimenez 14.2 (11.5-14.5) % Plt Count 216 (130-400) K/uL MPV 10.8 H (7.4-10.4) fL Immature Gran % (Auto) 0.3 % Neut % (Auto) 89.6 % Lymph % (Auto) 4.8 % [place] % (Auto) 5.1 % Eos % (Auto) 0.0 % Baso % (Auto) 0.2 % Immature Gran # (Auto) 0.04 H (0.00-0.02) K/uL Neut # (Auto) 11.51 H (1.4-6.5) K/uL Lymph # (Auto) 0.62 L (1.2-3.4) K/uL [place] # (Auto) 0.66 H (0.11-0.59) K/uL Eos # (Auto) 0.00 (0-0.5) K/uL Baso # (Auto) 0.02 (0-0.2) K/uL PT (9.0-12.0) Seconds INR (0.9-1.1) Sodium (136-145) mmol/L Potassium (3.5-5.1) mmol/L Chloride (98-107) mmol/L Carbon Dioxide (21-32) mmol/L Anion Gap (3-11) BUN (7-18) mg/dl Creatinine (0.6-1.2) mg/dl Est Cr Clr Drug Dosing Est GFR ( Amer) Est GFR (Non-Af Amer) BUN/Creatinine Ratio (10-20) Glucose (70-99) mg/dl Calcium (8.5-10.1) mg/dl Total Bilirubin (0.2-1) mg/dl Direct Bilirubin (0-0.2) mg/dl AST (15-37) U/L ALT (12-78) U/L Alkaline Phosphatase (45-117) U/L Total Protein (6.4-8.2) gm/dl Albumin (3.4-5.0) gm/dl Globulin (2.5-4.0) gm/dl Albumin/Globulin Ratio (0.9-2) Lipase (73-393) U/L Specimen Hemolysis Urine Color Urine Appearance (Clear) Urine pH (4.5-7.5) Ur Specific [place] (1.000-1.030) Urine Protein (Negative) Urine Glucose (UA) (Negative) Urine Ketones (Negative) Urine Blood (Negative) Urine Nitrite (Negative) Urine Bilirubin (Negative) Urine Urobilinogen (Negative) Ur Leukocyte Esterase (Negative) Urine WBC (Auto) (0-5) /hpf Urine RBC (Auto) (0-4) /hpf U Hyaline Cast (Auto) (0-5) /lpf U Epithel Cells (Auto) (0-5) /lpf Urine Bacteria (Auto) (Negative)
[2018-12-31] MEDS ORDERED: CALCIUM GLUCONATE 10% 1,000 MG in SODIUM CHLORIDE 0.9% 50 ML IV ONE (10:45)
--- NOTE | 2018-12-31 15:04 | Hospitalist Progress Note ---
Date of Service December 31, 2018 Assessment & Plan (1) Small bowel obstruction: - Previous SBO in Feb-Mar 2018; has high grade proximal jejunal obstruction on CT scan -- likely related to adhesions with h/o abd surgery. - Surgery consulted, appreciate input. - Advanced to [facility]D for lunch; IVFs at 100 cc/hr. - Zofran prn N/V; no indication for NG tube at this point. - Famotidine BID. (2) History of esophageal cancer: - Status post distal esophagectomy with pull-through in October 2017 in [facility]. - Followed as outpatient. PET scan from 03/2018 showed multiple FDG avid pulm nodules--> need to ensure she has had proper f/u on this (3) Left ureteral stone: - 5 mm left ureter stone noted on CT at admission. - U/a was negative. - Urology consulted for evaluation. (4) Acute anemia: - Likely related to IV fluids, diluational. - Monitor CBC qAM. (5) DVT prophylaxis: - SCDs; Heparin. Dispo: Med/surg for treatment of SBO. Supervising Physician Co-Signing Physician Notes BELEN Supervision Note: I did not personally see or examine the patient today, but I verified all garcia points of BELEN Varela's assessment and plan with the following exceptions/additions: None Subjective Communicated with patient via sweat band sewer phone. Pt. states she has epigastric pain. Is passing gas but has not had a BM in 2 days. Denies nausea/vomiting, hematuria, dysuria. Review of Systems Review of Systems: All systems reviewed & are unremarkable except as noted in HPI & below Constitutional: no fever, no chills, no fatigue, no weakness and no anorexia Respiratory: no cough, no dyspnea, no dyspnea on exertion and no wheezing Cardiovascular: no chest pain, no palpitations, no lightheadedness and no edema Gastrointestinal: + abdominal pain and + constipation; no nausea, no vomiting and no diarrhea/loose stools Genitourinary: no difficulty urinating and no hematuria Musculoskeletal: no back pain and no joint pain Integumentary: no non-healing lesions Physical Exam Physical Exam: General: Resting comfortably HEENT: NC/AT; PERRLA with EOMI; [place] conjunctiva, MMM. No erythema of posterior pharynx Neck: Supple and nontender Cardiac: RRR Lungs: CTA bilaterally Abdomen: Bowel hypoactive X 4; Tenderness to palp over epigastric region. Extremities: Warm. No edema present Neuro: No focal weakness Skin: No rash Results & Data Vital Signs (Past 12 Hours) Vital Signs Temp Pulse Resp BP Pulse Ox 12/31/18 07:12 36.9 C 65 15 106/67 96 Laboratory Results 12/31/18 12/31/18 12/31/18 Range/Units 07:14 07:14 07:14 WBC 5.25 (4.8-10.8) K/uL RBC 3.27 L (4.2-5.4) M/uL Hgb 10.2 L D (12.0-16.0) g/dL Hct 31.9 L (37-47) % MCV 97.6 (80-100) fL MCH 31.2 (25-34) pg MCHC 32.0 (32-36) g/dL RDW Std Deviation 51.1 H (36.4-46.3) fL RDW Coeff of Jimenez 14.2 (11.5-14.5) % Plt Count 145 (130-400) K/uL MPV 10.4 (7.4-10.4) fL Immature Gran % (Auto) 0.2 % Neut % (Auto) 61.9 % Lymph % (Auto) 27.4 % [place] % (Auto) 7.8 % Eos % (Auto) 2.3 % Baso % (Auto) 0.4 % Immature Gran # (Auto) 0.01 (0.00-0.02) K/uL Neut # (Auto) 3.25 (1.4-6.5) K/uL Lymph # (Auto) 1.44 (1.2-3.4) K/uL [place] # (Auto) 0.41 (0.11-0.59) K/uL Eos # (Auto) 0.12 (0-0.5) K/uL Baso # (Auto) 0.02 (0-0.2) K/uL PT (9.0-12.0) Seconds INR (0.9-1.1) Sodium 142 (136-145) mmol/L Potassium 3.5 (3.5-5.1) mmol/L Chloride 113 H (98-107) mmol/L Carbon Dioxide 27 (21-32) mmol/L Anion Gap 2.0 L (3-11) BUN 13 (7-18) mg/dl Creatinine 0.66 (0.6-1.2) mg/dl Est Cr Clr Drug Dosing 45.7 ml/min Est GFR ( Amer) 103.0 Est GFR (Non-Af Amer) 88.9 BUN/Creatinine Ratio 20.1 H (10-20) Glucose 87 (70-99) mg/dl Calcium 6.8 L D (8.5-10.1) mg/dl Total Bilirubin 0.9 (0.2-1) mg/dl Direct Bilirubin 0.2 (0-0.2) mg/dl AST 20 (15-37) U/L ALT 38 (12-78) U/L Alkaline Phosphatase 44 L (45-117) U/L Total Protein 5.6 L D (6.4-8.2) gm/dl Albumin 2.6 L (3.4-5.0) gm/dl Lipase 109 (73-393) U/L 12/30/18 Range/Units 11:18 WBC (4.8-10.8) K/uL RBC (4.2-5.4) M/uL Hgb (12.0-16.0) g/dL Hct (37-47) % MCV (80-100) fL MCH (25-34) pg MCHC (32-36) g/dL RDW Std Deviation (36.4-46.3) fL RDW Coeff of Jimenez (11.5-14.5) % Plt Count (130-400) K/uL MPV (7.4-10.4) fL Immature Gran % (Auto) % Neut % (Auto) % Lymph % (Auto) % [place] % (Auto) % Eos % (Auto) % Baso % (Auto) % Immature Gran # (Auto) (0.00-0.02) K/uL Neut # (Auto) (1.4-6.5) K/uL Lymph # (Auto) (1.2-3.4) K/uL [place] # (Auto) (0.11-0.59) K/uL Eos # (Auto) (0-0.5) K/uL Baso # (Auto) (0-0.2) K/uL PT 9.8 (9.0-12.0) Seconds INR 1.0 (0.9-1.1) Sodium (136-145) mmol/L Potassium (3.5-5.1) mmol/L Chloride (98-107) mmol/L Carbon Dioxide (21-32) mmol/L Anion Gap (3-11) BUN (7-18) mg/dl Creatinine (0.6-1.2) mg/dl Est Cr Clr Drug Dosing ml/min Est GFR ( Amer) Est GFR (Non-Af Amer) BUN/Creatinine Ratio (10-20) Glucose (70-99) mg/dl Calcium (8.5-10.1) mg/dl Total Bilirubin (0.2-1) mg/dl Direct Bilirubin (0-0.2) mg/dl AST (15-37) U/L ALT (12-78) U/L Alkaline Phosphatase (45-117) U/L Total Protein (6.4-8.2) gm/dl Albumin (3.4-5.0) gm/dl Lipase (73-393) U/L PG Care Time/CCT Total # of Minutes Spent Total Time Spent with Patient: Total time spent is greater than 50% in coordination of care (as documented) at patient's floor/unit and/or counseling patient:
[2018-12-31] MEDS ORDERED: HEPARIN SOD 5,000 UNIT/0.5 ML VIAL SQ SCH (21:00)
[2019-01-01 07:24] LABS: Basophils # (auto) 0.04 K/uL (0-0.2); Eosinophils # (auto) 0.18 K/uL (0-0.5); Eosinophils % (auto) 4.6 %; Hematocrit (blood only) 33.8 % (37-47); Hemoglobin 10.8 g/dL (12.0-16.0); Lymphocytes # (auto) 1.06 K/uL (1.2-3.4); Mean Corpuscular Volume 97.7 fL (80-100); Mean Platelet Volume 10.1 fL (7.4-10.4); Monocytes # (auto) 0.38 K/uL (0.11-0.59); Monocytes % (auto) 9.7 %; Neutrophils # (auto) 2.27 K/uL (1.4-6.5); Neutrophils % (auto) 57.7 %; Platelet Count 130 K/uL (130-400); RDW Coefficient of Variation 13.9 % (11.5-14.5); RDW Standard Deviation 49.3 fL (36.4-46.3); Red Blood Count 3.46 M/uL (4.2-5.4); White Blood Count 3.93 K/uL (4.8-10.8)
[2019-01-01] MEDS: SODIUM CHLORIDE 0.9% 1000ML 1,000 ML IV SCH ×2 (07:28→16:39)
[2019-01-01 07:53] LABS: BUN Creatinine Ratio 12.2 (10-20); Creatinine Clr Calc Pharmacy 47.1 ml/min; Est GFR (African American) 104.1; Est GFR (Non-African American) 89.8; Magnesium 2.1 mg/dl (1.8-2.4); Potassium 3.3 mmol/L (3.5-5.1)
[2019-01-01] MEDS ORDERED: POTASSIUM CHLORIDE 20 MEQ TABCR PO ONE (08:00)
--- NOTE | 2019-01-01 08:02 | Urology Consultation ---
Date of Consultation January 01, 2019 Assessment & Plan (1) Left ureteral stone: 73yo F with high grade SBO and 5mm prox ureteral stone, mild hydro. Interview with software configuration specialist utilized. Pt appears to be in no acute distress, nontoxic. Labs reviewed - normal kidney function; UA not suspicious for UTI, no RBCs. Will plan to repeat US and KUB to assess stone progression. Strain all urine. No indication for acute intervention at this time. Okay to return to clear liquid diet per general surgery. Will continue to follow with primary service. If stone is visible on KUB, we can discuss option for ESWL next Saturday. Please contact our service urgently for fever >101F, intractable left flank pain or uncontrolled vomiting. Thank you for the consultation. History of Present Illness Reason for Consultation: ureteral stone Requesting Physician: Dr. Muller Attending Physician: Bettye Muller MD History of Present Illness 73yo F with hx of esophagectomy om 10/2018, SBO in presents to [facility] ED on 12/30 with c/o abdominal pain, bloating, generalized backpain, nausea and vomiting x1 day. Utilized [employer] software configuration specialist today for interview. No family/friends at bedside. CT scan reveals 5mm prox left ureteral stone, mild hydro; as well as high grade SBO (similar to CT from 02/18). UA contaminated, but consistent with dehydration. No sign of infection, no RBCs. Pt has remote hx of stones many years ago, that required lithotripsy in the past, when home in [facility] Unsure of laterality. Denies LUTS, no gross hematuria. States pain has resolved. Pain was initially described as extending from abdomen, to chest, to bilateral lower back. Not consistent typical renal colic. She appears comfortable, in no acute distress. Allergies Allergy/AdvReac Type Severity Reaction Status Date / Time clindamycin AdvReac Severe Unknown Unverified 12/30/18 11:47 Home Medications Home Medications Medication Instructions Recorded Confirmed Type vitamin [id number] acid 1 tab PO DAILY 12/30/18 12/30/18 History Patient History Medical History History of esophageal cancer (Chronic) Small bowel obstruction (Acute) Esophageal carcinoma Status post esophagectomy in October 2017 HLD (hyperlipidemia) Multiple lung nodules Multiple thyroid nodules Benign per biopsy results Osteoporosis ST segment changes on electrocardiogram Small bowel obstruction Surgical History History of esophagectomy October 2017, entire [place] Social History Preferred Language: Mandarin Romansh Communication Ability: Effective Communication Ability Comment: Mandarin Communication Tools: IPad Shade Bander Required: Yes, Video and Voice Beliefs That Will Affect Care: Lutheran Lutheran Beliefs: Jain Current Living Situation: Alone Other Information That Helps Us Care for You: No Feels Safe at Home: Yes Safety Concerns: Feels Safe At This Time Smoking Status: Never smoker Do You Dip or Chew Tobacco: No Second Hand Exposure: No Tobacco Cessation Education Requested by Patient: No Hx Alcohol Use: No Hx Substance Use: No Review of Systems Review of Systems: Constitutional: Denies fever, chills, sweats, malaise Eyes: Denies problem reported ENMT: Denies dizziness Resp: Denies cough, Denies shortness of breath CV: Denies JVD GI: Denies nausea/vomiting : Denies suprapubic or flank pain, dysuria, urgency, frequency, hematuria MS: Denies swelling, stiffness Integ: Denies rash, erythema Neuro: Denies falls, weakness Psych: Denies behavior change Endo: Denies polyphagia, polydipsia Heme: Denies easy bleeding Physical Exam Constitutional: WD/WN, vitals as above + thin Respiratory: normal respiratory effort; no respiratory distress Cardiovascular: RRR, no murmur, no edema Gastrointestinal (Abdomen): Inspection/Auscultation: abdomen normal to inspection and + abdomen distended (mildly distended); + abnormal bowel sounds (hypoactive) Percussion/Palpation: + abdomen tender (epigastric) and abdomen soft; no guarding and abdomen not rigid Skin: no rashes, warm and dry Psychiatric: A+Ox3, euthymic affect Orientation: alert and oriented x 3 Results & Data Vital Signs (Past 12 Hours) Vital Signs Temp Pulse Resp BP Pulse Ox 01/01/19 07:18 36.8 C 63 20 124/64 97 12/31/18 23:42 36.9 C 64 17 129/67 98 Laboratory Results Laboratory Results - last 48 hr 12/30/18 12/31/18 12/31/18 11:18 07:14 07:14 WBC 5.25 RBC 3.27 L Hgb 10.2 L D Hct 31.9 L MCV 97.6 MCH 31.2 MCHC 32.0 RDW Std Deviation 51.1 H RDW Coeff of Jimenez 14.2 Plt Count 145 MPV 10.4 Immature Gran % (Auto) 0.2 Neut % (Auto) 61.9 Lymph % (Auto) 27.4 [place] % (Auto) 7.8 Eos % (Auto) 2.3 Baso % (Auto) 0.4 Immature Gran # (Auto) 0.01 Neut # (Auto) 3.25 Lymph # (Auto) 1.44 [place] # (Auto) 0.41 Eos # (Auto) 0.12 Baso # (Auto) 0.02 PT 9.8 INR 1.0 Sodium 142 Potassium 3.5 Chloride 113 H Carbon Dioxide 27 Anion Gap 2.0 L BUN 13 Creatinine 0.66 Est Cr Clr Drug Dosing 45.7 Est GFR ( Amer) 103.0 Est GFR (Non-Af Amer) 88.9 BUN/Creatinine Ratio 20.1 H Glucose 87 Calcium 6.8 L D Magnesium Total Bilirubin Direct Bilirubin AST ALT Alkaline Phosphatase Total Protein Albumin Lipase 12/31/18 01/01/19 01/01/19 07:14 07:08 07:08 WBC 3.93 L RBC 3.46 L Hgb 10.8 L Hct 33.8 L MCV 97.7 MCH 31.2 MCHC 32.0 RDW Std Deviation 49.3 H RDW Coeff of [place]enez 13.9 Plt Count 130 MPV 10.1 Immature Gran % (Auto) 0.0 Neut % (Auto) 57.7 Lymph % (Auto) 27.0 [place] % (Auto) 9.7 Eos % (Auto) 4.6 Baso % (Auto) 1.0 Immature Gran # (Auto) 0.00 Neut # (Auto) 2.27 Lymph # (Auto) 1.06 L [place] # (Auto) 0.38 Eos # (Auto) 0.18 Baso # (Auto) 0.04 PT INR Sodium 143 Potassium 3.3 L Chloride 113 H Carbon Dioxide 26 Anion Gap 4.0 BUN 8 D Creatinine 0.64 Est Cr Clr Drug Dosing 47.1 Est GFR ( Amer) 104.1 Est GFR (Non-Af Amer) 89.8 BUN/Creatinine Ratio 12.2 Glucose 87 Calcium 7.0 L Magnesium 2.1 Total Bilirubin 0.9 Direct Bilirubin 0.2 AST 20 ALT 38 Alkaline Phosphatase 44 L Total Protein 5.6 L D Albumin 2.6 L Lipase 109
--- NOTE | 2019-01-01 09:36 | Ultrasound Report ---
US renal/blad retro comp HISTORY: Nephrocalcinosis left ureteral stone COMPARISON: CT abdomen and pelvis 12/30/2018 FINDINGS: Right kidney: Maximum dimension 9.1 cm. No evidence for hydronephrosis. Moderate cortical scarring. A ge-related increase in cortical echogenicity. 4 mm calcification lower pole. Left kidney: Maximum dimension 9.5 cm. Mild fullness left renal collecting system versus peripelvic cysts. Several parapelvic cysts measuring up to 1.5 cm. Normal corticomedullary differentiation and c ortical thickness. Bladder: No bladder wall thickening. The bilateral ureteral jets were identified. IMPRESSION: 1. Mild left renal hydronephrosis versus several small parapelvic cysts. 2. Several left and to a lesser extent right renal parapelvic cysts. 3. Nonobstructing calcification lower pole right kidney. The above report was generated using voice recognition software. It may contain grammatical, syntax or spelling errors. Electronically signed by: Db Graves M.D. 01/01/2019 9:35 AM
--- NOTE | 2019-01-01 09:39 | XRay Report ---
XR KUB/Abdomen 1 view CLINICAL HISTORY: left ureteral stone nephrocalcinosis COMPARISON STUDY: CT 12/30/2018 FINDINGS: 4.5 mm proximal left ureteral calculus. Several abdominal and pelvic vascular calcification s. Bowel pattern is nonobstructive. IMPRESSION: 1. 4.5 mm proximal left ureteral calculus. 2. Otherwise negative study. The above report was generated using voice recognition software. It may contain grammatical, syntax or spelling errors. Electronically signed by: Db Graves M.D. 01/01/2019 9:37 AM
[2019-01-01] MEDS: FAMOTIDINE 20 MG in SYRINGE 3 ML IV SCH ×2 (10:11→21:09)
--- NOTE | 2019-01-01 15:03 | Hospitalist Progress Note ---
Date of Service January 01, 2019 Assessment & Plan (1) Small bowel obstruction: - Previous SBO in Feb-Mar 2018; has high grade proximal jejunal obstruction on CT scan -- likely related to adhesions with h/o abd surgery. - Surgery consulted, appreciate input. - Advance to FLD; IVFs at 100 cc/hr. - Zofran prn N/V; no indication for NG tube. - Famotidine BID. (2) History of esophageal cancer: - Status post distal esophagectomy with pull-through in October 2017 in [facility]. - PET scan from 03/2018 showed multiple FDG avid pulm nodules--> will need outpatient follow up. (3) Left ureteral stone: - 5 mm left ureter stone noted on CT at admission; pt. does report h/o urological procedure in [place], possible lithotripsy in past. - Urology consulted, appreciate input. - Renal US showed mild left hydronephrosis, non obstructing calcification of right kidney lower pole. - KUB showed 4.5 mm left ureter calculus. - Will continue conservative management with straining all urine; may require ESWL as outpatient if no improvement. (4) Acute anemia: - Likely related to IV fluids, dilutional. - Monitor CBC qAM; consider iron studies due to h/o chronic anemia. (5) Lung nodules: - Will need outpatient follow up. (6) Thyroid nodule: - H/o biopsy, negative; followed as outpatient. (7) Electrolyte abnormality: - K level 3.3 -- ordered K 20 mEq PO. - Monitor levels qAM. (8) DVT prophylaxis: - SCDs; Heparin. Dispo: Med/surg for treatment of SBO. Discharge pending improvement in SBO, advancement of diet. Supervising Physician Co-Signing Physician Notes PA Supervision Note: I did not personally see or examine the patient today, but I verified all garcia points of BELEN Varela's assessment and plan with the following exceptions/additions: None Subjective Patient states her abdominal pain is nothing compared to admission. She does have some tenderness in the epigastric region, however she is feeling much better. Had one bowel movement which was normal and she has been able to pass gas. The patient denies any nausea, chest pain, shortness of breath, or urinary symptoms at this time. A 5mm stone was identified on CT at admission, which she confirms she talked to Urology about this morning. Review of Systems Review of Systems: All systems reviewed & are unremarkable except as noted in HPI & below Constitutional: no fever, no chills, no fatigue, no weakness and no anorexia Respiratory: no cough, no dyspnea, no dyspnea on exertion and no wheezing Cardiovascular: no chest pain, no palpitations and no edema Gastrointestinal: + constipation; no abdominal pain, no nausea and no vomiting Genitourinary: no dysuria, no difficulty urinating and no hematuria Musculoskeletal: no back pain and no joint pain Integumentary: no non-healing lesions Physical Exam Physical Exam: General: Resting comfortably HEENT: NC/AT; PERRLA with EOMI; [place] conjunctiva, MMM. No erythema of posterior pharynx Neck: Supple and nontender Cardiac: RRR Lungs: CTA bilaterally Abdomen: Bowel normoactive X 4; TTP in epigastric region. Extremities: Warm. No edema present Neuro: No focal weakness Skin: No rash Results & Data Vital Signs (Past 12 Hours) Vital Signs Temp Pulse Resp BP Pulse Ox 01/01/19 07:18 36.8 C 63 20 124/64 97 Laboratory Results 01/01/19 01/01/19 Range/Units 07:08 07:08 WBC 3.93 L (4.8-10.8) K/uL RBC 3.46 L (4.2-5.4) M/uL Hgb 10.8 L (12.0-16.0) g/dL Hct 33.8 L (37-47) % MCV 97.7 (80-100) fL MCH 31.2 (25-34) pg MCHC 32.0 (32-36) g/dL RDW Std Deviation 49.3 H (36.4-46.3) fL RDW Coeff of Jimenez 13.9 (11.5-14.5) % Plt Count 130 (130-400) K/uL MPV 10.1 (7.4-10.4) fL Immature Gran % (Auto) 0.0 % Neut % (Auto) 57.7 % Lymph % (Auto) 27.0 % [place] % (Auto) 9.7 % Eos % (Auto) 4.6 % Baso % (Auto) 1.0 % Immature Gran # (Auto) 0.00 (0.00-0.02) K/uL Neut # (Auto) 2.27 (1.4-6.5) K/uL Lymph # (Auto) 1.06 L (1.2-3.4) K/uL [place] # (Auto) 0.38 (0.11-0.59) K/uL Eos # (Auto) 0.18 (0-0.5) K/uL Baso # (Auto) 0.04 (0-0.2) K/uL Sodium 143 (136-145) mmol/L Potassium 3.3 L (3.5-5.1) mmol/L Chloride 113 H (98-107) mmol/L Carbon Dioxide 26 (21-32) mmol/L Anion Gap 4.0 (3-11) BUN 8 D (7-18) mg/dl Creatinine 0.64 (0.6-1.2) mg/dl Est Cr Clr Drug Dosing 47.1 ml/min Est GFR ( Amer) 104.1 Est GFR (Non-Af Amer) 89.8 BUN/Creatinine Ratio 12.2 (10-20) Glucose 87 (70-99) mg/dl Calcium 7.0 L (8.5-10.1) mg/dl Magnesium 2.1 (1.8-2.4) mg/dl PG Care Time/CCT Total # of Minutes Spent Total Time Spent with Patient: Total time spent is greater than 50% in coordination of care (as documented) at patient's floor/unit and/or counseling patient:
[2019-01-01] MEDS ORDERED: BISACODYL 10 MG SUPP PR STA (15:11)
--- NOTE | 2019-01-01 16:13 | Surgery Progress Note ---
Date of Service January 01, 2019 Assessment & Plan (1) Small bowel obstruction: 73 year-old female with history of esophagectomy with gastric pull through in 10/2017 and history of SBO in 02/2018 who presented to emergency department with complaint of abdominal pain, bloating, n/v for [address] scan showing high grade small bowel obstruction with transition point in the proximal jejunum with enhancement of mucosa (similar findings to CT scan in 02/2018) treated conservatively with last SBO. Leukocytosis resolved, vitals stable, abdomen soft, mildly tender in epigastrium, no rigidity, guarding, rebound, or peritonitis. Passing flatus. -KUB today showing nonobstructive bowel gas pattern Plan: Advance to full liquids one time Dulcolax suppository SCDs and Lovenox for DVT prophylaxis continue medical management will follow along. Dr. Glover has seen and examined pt, agrees with above. Supervising Physician Co-Signing Physician Notes I have interviewed and examined this patient I agree with the above note. She has begun to pass flatus although no bowel movement. She has no abdominal pain or tenderness has almost resolved. She is also been found to have nephrolithiasis. We are planning for a suppository. Subjective passing gas, no bowel movement not having abdominal pain but "tightness" in upper abdomen no vomiting Physical Exam Constitutional: WD/WN, vitals as above + thin; not ill appearing Gastrointestinal (Abdomen): Inspection/Auscultation: abdomen normal to inspection; abdomen not distended Percussion/Palpation: + abdomen tender (mild epigastrium) and abdomen soft; no guarding and abdomen not rigid Skin: no rashes, warm and dry Psychiatric: A+Ox3, euthymic affect Results & Data Vital Signs (Past 12 Hours) Vital Signs Temp Pulse Resp BP Pulse Ox 01/01/19 15:23 37.0 C 61 16 134/65 98 01/01/19 07:18 36.8 C 63 20 124/64 97 Laboratory Results 01/01/19 01/01/19 Range/Units 07:08 07:08 WBC 3.93 L (4.8-10.8) K/uL RBC 3.46 L (4.2-5.4) M/uL Hgb 10.8 L (12.0-16.0) g/dL Hct 33.8 L (37-47) % MCV 97.7 (80-100) fL MCH 31.2 (25-34) pg MCHC 32.0 (32-36) g/dL RDW Std Deviation 49.3 H (36.4-46.3) fL RDW Coeff of Jimenez 13.9 (11.5-14.5) % Plt Count 130 (130-400) K/uL MPV 10.1 (7.4-10.4) fL Immature Gran % (Auto) 0.0 % Neut % (Auto) 57.7 % Lymph % (Auto) 27.0 % [place] % (Auto) 9.7 % Eos % (Auto) 4.6 % Baso % (Auto) 1.0 % Immature Gran # (Auto) 0.00 (0.00-0.02) K/uL Neut # (Auto) 2.27 (1.4-6.5) K/uL Lymph # (Auto) 1.06 L (1.2-3.4) K/uL [place] # (Auto) 0.38 (0.11-0.59) K/uL Eos # (Auto) 0.18 (0-0.5) K/uL Baso # (Auto) 0.04 (0-0.2) K/uL Sodium 143 (136-145) mmol/L Potassium 3.3 L (3.5-5.1) mmol/L Chloride 113 H (98-107) mmol/L Carbon Dioxide 26 (21-32) mmol/L Anion Gap 4.0 (3-11) BUN 8 D (7-18) mg/dl Creatinine 0.64 (0.6-1.2) mg/dl Est Cr Clr Drug Dosing 47.1 ml/min Est GFR ( Amer) 104.1 Est GFR (Non-Af Amer) 89.8 BUN/Creatinine Ratio 12.2 (10-20) Glucose 87 (70-99) mg/dl Calcium 7.0 L (8.5-10.1) mg/dl Magnesium 2.1 (1.8-2.4) mg/dl
[2019-01-01] MEDS: HEPARIN SOD 5,000 UNIT/0.5 ML VIAL SQ SCH (21:10)
[2019-01-02] MEDS: SODIUM CHLORIDE 0.9% 1000ML 1,000 ML IV SCH (01:15)
[2019-01-02 07:03] LABS: Basophils # (auto) 0.02 K/uL (0-0.2); Basophils % (auto) 0.6 %; Eosinophils % (auto) 3.1 %; Hematocrit (blood only) 35.3 % (37-47); Hemoglobin 11.6 g/dL (12.0-16.0); Lymphocytes # (auto) 1.01 K/uL (1.2-3.4); Lymphocytes % (auto) 31.2 %; Mean Corpuscular Hgb Conc 32.9 g/dL (32-36); Mean Corpuscular Volume 95.1 fL (80-100); Mean Platelet Volume 10.1 fL (7.4-10.4); Monocytes # (auto) 0.28 K/uL (0.11-0.59); Monocytes % (auto) 8.6 %; Neutrophils # (auto) 1.83 K/uL (1.4-6.5); Neutrophils % (auto) 56.5 %; Platelet Count 134 K/uL (130-400); RDW Coefficient of Variation 13.5 % (11.5-14.5); RDW Standard Deviation 46.7 fL (36.4-46.3); Red Blood Count 3.71 M/uL (4.2-5.4); White Blood Count 3.24 K/uL (4.8-10.8)
[2019-01-02 07:40] LABS: BUN Creatinine Ratio 8.4 (10-20); Calcium 6.8 mg/dl (8.5-10.1); Creatinine Clr Calc Pharmacy 51.9 ml/min; Est GFR (African American) 107.5; Est GFR (Non-African American) 92.7; Potassium 3.2 mmol/L (3.5-5.1)
--- NOTE | 2019-01-02 08:43 | Surgery Progress Note ---
Date of Service January 02, 2019 Assessment & Plan (1) Small bowel obstruction: 73 year-old female with history of esophagectomy with gastric pull through in 10/2017 and history of SBO in 02/2018 who presented to emergency department with complaint of abdominal pain, bloating, n/v for [address] scan showing high grade small bowel obstruction with transition point in the proximal jejunum with enhancement of mucosa (similar findings to CT scan in 02/2018) treated conservatively with last SBO. Leukocytosis resolved, vitals stable. Plan: Advance to regular diet okay from surgery standpoint for discharge our services signing off, please call with questions or concerns. Dr. Glover has seen and examined pt, agrees with above. Supervising Physician Co-Signing Physician Notes I interviewed and examined this patient I agree with the above note. Her small bowel obstruction has resolved. We can advance her diet Subjective no abdominal pain passing gas, small bowel movement yesterday abdominal tightness better no n/v, tolerated full liquids asking to go home today Physical Exam Constitutional: WD/WN, vitals as above no acute distress and not ill appearing Gastrointestinal (Abdomen): Inspection/Auscultation: abdomen normal to inspection; abdomen not distended Percussion/Palpation: abdomen soft; abdomen nontender, no guarding and abdomen not rigid Skin: no rashes, warm and dry Psychiatric: A+Ox3, euthymic affect Results & Data Vital Signs (Past 12 Hours) Vital Signs Temp Pulse Pulse Resp BP Pulse Ox 01/02/19 07:54 36.9 C 63 18 122/64 98 01/01/19 22:36 36.9 C 58 L 16 127/63 98 Laboratory Results 01/02/19 01/02/19 Range/Units 06:53 06:53 WBC 3.24 L (4.8-10.8) K/uL RBC 3.71 L (4.2-5.4) M/uL Hgb 11.6 L (12.0-16.0) g/dL Hct 35.3 L (37-47) % MCV 95.1 (80-100) fL MCH 31.3 (25-34) pg MCHC 32.9 (32-36) g/dL RDW Std Deviation 46.7 H (36.4-46.3) fL RDW Coeff of Jimenez 13.5 (11.5-14.5) % Plt Count 134 (130-400) K/uL MPV 10.1 (7.4-10.4) fL Immature Gran % (Auto) 0.0 % Neut % (Auto) 56.5 % Lymph % (Auto) 31.2 % [place] % (Auto) 8.6 % Eos % (Auto) 3.1 % Baso % (Auto) 0.6 % Immature Gran # (Auto) 0.00 (0.00-0.02) K/uL Neut # (Auto) 1.83 (1.4-6.5) K/uL Lymph # (Auto) 1.01 L (1.2-3.4) K/uL [place] # (Auto) 0.28 (0.11-0.59) K/uL Eos # (Auto) 0.10 (0-0.5) K/uL Baso # (Auto) 0.02 (0-0.2) K/uL Sodium 143 (136-145) mmol/L Potassium 3.2 L (3.5-5.1) mmol/L Chloride 112 H (98-107) mmol/L Carbon Dioxide 27 (21-32) mmol/L Anion Gap 4.0 (3-11) BUN 5 L (7-18) mg/dl Creatinine 0.58 L (0.6-1.2) mg/dl Est Cr Clr Drug Dosing 51.9 ml/min Est GFR ( Amer) 107.5 Est GFR (Non-Af Amer) 92.7 BUN/Creatinine Ratio 8.4 L (10-20) Glucose 89 (70-99) mg/dl Calcium 6.8 L (8.5-10.1) mg/dl
[2019-01-02] MEDS: FAMOTIDINE 20 MG in SYRINGE 3 ML IV SCH (08:56)
[2019-01-02] MEDS: HEPARIN SOD 5,000 UNIT/0.5 ML VIAL SQ SCH (08:56)
[2019-01-02] MEDS ORDERED: POTASSIUM CHLORIDE 20 MEQ TABCR PO ONE ×2 (09:30→12:00)
--- NOTE | 2019-01-02 09:42 | Urology Progress Note ---
Date of Service January 02, 2019 Assessment & Plan (1) Left ureteral stone: 73yo F with high grade SBO and 5mm prox ureteral stone, mild hydro. Interview with salesperson shoes utilized. Pt is doing very well, feels she is ready to go home. We discussed optoins for treatment of left ureteral stone indetail. She states she has had ESWL on the right side in the past successfully, would like to do this again. She is currently asymptomatic and would like to wait until she is home, rested and feeling stronger prior to treatment. This is reasonable. We will arrange for outpatient followup to arrange for ESWL in 1-2 weeks. She does live alone, speaks minimal tanzanian. She does have a friend that helps with her appts, nursing to contact me with name/number to coordinate. Thank you for the consultation. Please reconsult with additional questions, concerns or changes in patient status. Subjective 73yo F with high grade SBO and 5mm prox ureteral stone, mild hydro. Painter Plate utilized for visit today. Pt doing well today. Abd pain and nausea continue to improve, advancing diet per gen surg. Denies flank or suprapubic pain. Denies LUTS KUB - good visibility of 5mm Left prox ureteral stone ALEX - mild hydro associated Kidney function remains stable Review of Systems Review of Systems: Constitutional: Denies fever, chills, sweats, malaise Eyes: Denies problem reported ENMT: Denies dizziness Resp: Denies cough, Denies shortness of breath CV: Denies JVD GI: Denies nausea/vomiting : Denies suprapubic or flank pain, dysuria, urgency, frequency, hematuria MS: Denies swelling, stiffness Integ: Denies rash, erythema Neuro: Denies falls, weakness Psych: Denies behavior change Endo: Denies polyphagia, polydipsia Heme: Denies easy bleeding Physical Exam Constitutional: WD/WN, vitals as above + thin Respiratory: normal respiratory effort; no respiratory distress Cardiovascular: RRR, no murmur, no edema Gastrointestinal (Abdomen): Inspection/Auscultation: abdomen normal to inspection Percussion/Palpation: abdomen soft; no guarding and abdomen not rigid Skin: no rashes, warm and dry Psychiatric: A+Ox3, euthymic affect Orientation: alert and oriented x 3 Results & Data Vital Signs (Past 12 Hours) Vital Signs Temp Pulse Pulse Resp BP Pulse Ox 01/02/19 07:54 36.9 C 63 18 122/64 98 01/01/19 22:36 36.9 C 58 L 16 127/63 98 Laboratory Results Laboratory Results - last 48 hr 01/01/19 01/01/19 01/02/19 07:08 07:08 06:53 WBC 3.93 L 3.24 L RBC 3.46 L 3.71 L Hgb 10.8 L 11.6 L Hct 33.8 L 35.3 L MCV 97.7 95.1 MCH 31.2 31.3 MCHC 32.0 32.9 RDW Std Deviation 49.3 H 46.7 H RDW Coeff of Jimenez 13.9 13.5 Plt Count 130 134 MPV 10.1 10.1 Immature Gran % (Auto) 0.0 0.0 Neut % (Auto) 57.7 56.5 Lymph % (Auto) 27.0 31.2 [place] % (Auto) 9.7 8.6 Eos % (Auto) 4.6 3.1 Baso % (Auto) 1.0 0.6 Immature Gran # (Auto) 0.00 0.00 Neut # (Auto) 2.27 1.83 Lymph # (Auto) 1.06 L 1.01 L [place] # (Auto) 0.38 0.28 Eos # (Auto) 0.18 0.10 Baso # (Auto) 0.04 0.02 Sodium 143 Potassium 3.3 L Chloride 113 H Carbon Dioxide 26 Anion Gap 4.0 BUN 8 D Creatinine 0.64 Est Cr Clr Drug Dosing 47.1 Est GFR ( Amer) 104.1 Est GFR (Non-Af Amer) 89.8 BUN/Creatinine Ratio 12.2 Glucose 87 Calcium 7.0 L Magnesium 2.1 01/02/19 06:53 WBC RBC Hgb Hct MCV MCH MCHC RDW Std Deviation RDW Coeff of Jimenez Plt Count MPV Immature Gran % (Auto) Neut % (Auto) Lymph % (Auto) [place] % (Auto) Eos % (Auto) Baso % (Auto) Immature Gran # (Auto) Neut # (Auto) Lymph # (Auto) [place] # (Auto) Eos # (Auto) Baso # (Auto) Sodium 143 Potassium 3.2 L Chloride 112 H Carbon Dioxide 27 Anion Gap 4.0 BUN 5 L Creatinine 0.58 L Est Cr Clr Drug Dosing 51.9 Est GFR ( Amer) 107.5 Est GFR (Non-Af Amer) 92.7 BUN/Creatinine Ratio 8.4 L Glucose 89 Calcium 6.8 L Magnesium
--- NOTE | 2019-01-02 14:34 | Discharge Summary ---
Date of Service January 02, 2019 Admission HPI Per Admitting Provider 73-year-old female of descent who developed abdominal discomfort in the upper abdominal region yesterday associated with nausea. She did vomit a small amount several times. She had a normal bowel movement yesterday. No hematemesis melena or hematochezia. She has had previous distal esophagectomy with gastric pull-through in [facility] in October 2017. She was hospitalized last fall for a partial small bowel obstruction. CT scan today reveals evidence of high- grade small bowel obstruction in the region of the proximal jejunum. The patient has not vomited since she has been in our ED and NG tube has not been placed at this time. Surgical consultation has been requested. She will be kept n.p.o. and given IV fluids. Hopefully the small bowel obstruction will resolve spontaneously without surgery. Admission Exam Per Admitting Provider General-alert and oriented x3, no fevers, no chills HEENT-head atraumatic and normocephalic, TMs intact bilaterally, pupils equal and reactive to light, extraocular muscles intact Neck-no lymphadenopathy or thyromegaly, trachea midline Chest-clear to auscultation percussion. No rales wheezing or rhonchi Cardiac-regular rate and rhythm, normal S1 and S2, no murmurs Abdomen-normal bowel sounds, no hepatosplenomegaly. Mild epigastric and right upper quadrant tenderness. No palpable masses. No rebound or guarding Extremities-no cyanosis, clubbing, or edema Neuro-cranial nerves II through XII intact, motor and sensory function within normal limits, strength symmetrical 5/5, no focal deficits Psych-normal affect, normal mood Principal Diagnosis Small Bowel Obstruction Discharge Exam General: Resting comfortably HEENT: NC/AT; PERRLA with EOMI; [place] conjunctiva, MMM. No erythema of posterior pharynx Neck: Supple and nontender Cardiac: RRR Lungs: CTA bilaterally Abdomen: Bowel normoactive X 4; nontender to light palp. Extremities: Warm. No edema present Neuro: No focal weakness Skin: No rash Discharge Data Allergies Allergy/AdvReac Type Severity Reaction Status Date / Time clindamycin AdvReac Severe Unknown Unverified 12/30/18 11:47 Consultations 12/30/18 13:37 ED Decision to Admit Stat 12/30/18 15:44 Consult General Surgery Routine 12/31/18 13:38 Consult Urology Routine Ordered Studies 12/30/18 11:03 CT abd pelvis IV con only Stat 01/01/19 08:28 US renal/blad retro comp Urgent [facility] Hospital Course (1) Small bowel obstruction: Previous SBO in Feb-Mar 2018; has high grade proximal jejunal obstruction on CT scan -- likely related to adhesions with h/o abd surgery. Surgery consulted, appreciate input. Advanced to regular diet prior to discharge. Zofran prn N/V; did not require NG tube. Famotidine BID. F/u with PCP. (2) History of esophageal cancer: Status post distal esophagectomy with pull-through in October 2017 in [facility]. PET scan from 03/2018 showed multiple FDG avid pulm nodules. Pt. reported that she does not follow with an oncologist [place] the [place] but does have PET scan ordered in past. Will need follow up due to pulm nodules. Discussed with patient and friend at bedside; the friend relayed that patient is not aware she had a h/o esophageal cancer, was under the impression that she received esophagectomy to prevent development of cancer. Recommended follow up with oncology in 2-3 weeks -- nurse navigator is arranging appt. Her friend will discuss case with patient's daughter prior to appointment (daughter is aware, did not tell the patient her diagnosis). (3) Left ureteral stone: 5 mm left ureter stone noted on CT at admission; pt. does report h/o urological procedure in [place], possible lithotripsy in past. Urology consulted, appreciate input. Renal US showed mild left hydronephrosis, non obstructing calcification of right kidney lower pole. KUB showed 4.5 mm left ureter calculus. Continue conservative management with straining all urine; may require ESWL as outpatient if no improvement. Discussed urology follow up as outpatient -- she was very hesitant to follow up, stating that she will see her urology in [place] during a visit in the winter months. Encouraged her to follow up with urology. (4) Acute anemia: Likely related to IV fluids, dilutional. (5) Lung nodules: Encouraged outpatient follow up with oncology (see above). (6) Thyroid nodule: H/o biopsy, negative; followed as outpatient. (7) Electrolyte abnormality: Replaced as needed. (8) Hypocalcemia: Corrected calcium level was 7.9. Recommend Vit D level as outpatient. (9) DVT prophylaxis: Heparin. Pt. was stable for discharge on 01/02/19. Will need to follow up with PCP, urology and oncology. Total Time Total Time Spent Total Time Spent (In Minutes): >30 minutes Total Time Includes: Examination of the Patient, Discharge Planning, Medication Reconciliation, Communication With Other Providers and Other Discharge Plan Discharge Items Patient Disposition: Home - Self-Care Reason For Visit: SMALL BOWEL OBSTRUCTION Discharge Diagnosis: Small Bowel Obstruction Condition: Good Discharge Goals: Decrease discomfort, Improve disease control, Improve function, Increase independence, Improve nutritional status and Prevent disease Activity: As commented below Exercise/Sports: Gradually increase as tolerated Non-emergency contact: Primary Care Provider, Oncologist and Urologist Call non-emergency contact if: you have any medication questions, your symptoms worsen, your pain is not controlled, your pain is worsening, your pain is unusual for you, your pain is concerning for you and you have a fever Follow-up/Referrals: Margot Gomez CRNP [Nurse Practitioner] - (Please, follow up at [facility]. *A nurse from this office will call you with the appointment details. The office is located at [address] [place] [address] in [place]. If you have any questions, call the office at [phone].) Jose Cruz Gonsales [Physician] - 01/09/19 10:15 am (Please, follow up with Dr. Gonsales on SaturdayJanuary 09 at 10:15 am. *The office is located in the rear of this hospital building. You will park behind the hospital in [address] and enter via [facility]. If you need to change or cancel this appointment, call the office at [phone].) Cesar Michelle MD [Primary Care Provider] - 01/05/19 2:30 pm (Please, follow up at Dr. Michelle's office with her associate, Dr. Ledesma, on SaturdayJanuary 05 at 2:30 pm. *If you need to change this appointment, call their office at [phone]. ) Diet: Regular Addtl Provider Instructions: 1. Small Bowel Obstruction * Please continue a regular diet at home. * Please take an over the counter bowel regimen at home to prevent constipation -- Colace twice daily with Miralax as needed. * Please follow up with your primary care provider as scheduled on 01/05/19. 2. Left Ureter Stone * An appointment will be scheduled with urology in 1-2 weeks for re-evaluation. * Please call your family doctor or go to the ER if you develop the following: fever or chills, severe flank pain, nausea/vomiting, blood in the urine. 3. History of Esophageal Cancer * An appointment will be scheduled with oncology, Dr. Aponte, in 2-3 weeks -- you will need routine evaluation due to h/o cancer with new pulmonary nodules. 4. Thyroid Nodules * Please follow up with your family doctor to discuss further evaluation. 5. Low Potassium Levels * Please take Potassium 20 mEq daily due to persistently low levels. * You will need follow up labs as an outpatient. Prescriptions: New docusate sodium [Colace] 100 mg capsule 100 mg PO BID Qty: 1 RF: 0 polyethylene glycol 3350 [Miralax] 17 gram powder in packet 17 gm PO DAILY PRN (Reason: constipation) Qty: 1 RF: 0 potassium chloride 20 mEq tablet extended release 20 meq PO DAILY Qty: 1 RF: 0 Continued vitamin B60-jbsyp acid 500-400 mcg Tablet 1 tab PO DAILY RF: 0 Stand-Alone Forms: [facility] Discharge Orders: Discharge Order (Routine); Ordered 01/02/19 Ordered By: Bettye Muller Admission Data Admit Date/Time: 12/30/18 14:52 Attending Provider: Bettye Muller Admit Provider: Fran Carrion Primary Care Provider: Cesar Michelle Other Providers: Fran Carrion ; Db Glover ; Alex Jimenez Service: Surgical Services Other Interventions: Discharge Summary Assessment (RN) Last Done: 01/02/19 14:45 Pending Studies at Discharge: No DC Date/Time DO NOT enter until pt leaves facility: 01/02/19 15:35 Supervising Physician Co-Signing Physician Notes PA Supervision Note: I personally saw and examined the patient. I verified all garcia points and agree with BELEN Varela with the following exceptions and/or additions: Spoke with pt via interpretor on iPad. Doing very well, no pain, no N/V. Is passing flatus, eating She will f/u with Oncology as outpt No flank pain, no dysuria Vitals reviewed RRR no mgr CTAB no wcr Abd +BS soft NT ND Ext no edema, no calf tenderness Stable for dc to home, recommend close f/u with Oncology
== END 2019-01-02 15:35 | disposition home or self-care (01) | DRG 389 ==
LOC: ED 10:25 → 3N 14:52 → SUATTDRO 14:52 → 3N 15:28
DX: Z88.1 Allergy status to other antibiotic agents; E04.1 Nontoxic single thyroid nodule; E83.51 Hypocalcemia; E78.5 Hyperlipidemia, unspecified; D64.9 Anemia, unspecified; M81.0 Age-related osteoporosis without current pathological fracture; K56.50 Intestinal adhesions [bands], unspecified as to partial versus complete obstruction; R91.8 Other nonspecific abnormal finding of lung field; N13.2 Hydronephrosis with renal and ureteral calculous obstruction; C15.9 Malignant neoplasm of esophagus, unspecified

== ENCOUNTER 2019-03-16 18:15 | Inpatient (IN) ==
[2019-03-16] MEDS ORDERED: SODIUM CHLORIDE 0.9% 500 ML IV ONE (18:30)
--- NOTE | 2019-03-16 18:41 | XRay Report ---
XR chest 1V portable CLINICAL HISTORY: 73 years-old Female presenting with Chest Pain. TECHNIQUE: Portable upright AP view of the chest was obtained. COMPARISON: 03/02/2018. FINDINGS: Cardiopericardial silhouette enlarged, new from prior. No focal opacity. No large effusion or pneumot horax. Osseous structures normal. Upper abdomen normal. IMPRESSION: 1. Enlargement of the cardiopericardial silhouette, new from prior. This likely relates to cardiomeg rosa versus a pericardial effusion. No evidence of congestive change or pulmonary edema. Electronically signed by: Darrian Hernandez M.D. 03/16/2019 6:40 PM
[2019-03-16] MEDS ORDERED: PROCHLORPERAZINE 1 ML IV STA (18:59)
[2019-03-16] MEDS ORDERED: FAMOTIDINE 20MG IV PUSH 20 MG/5 ML SYR IV STA (18:59)
[2019-03-16] MEDS ORDERED: ACETAMINOPHEN 1,000 MG/100 ML VIAL IV STA (19:00)
[2019-03-16 19:20] LABS: Basophils # (auto) 0.01 K/uL (0-0.2); Basophils % (auto) 0.1 %; Hematocrit (blood only) 44.2 % (37-47); Hemoglobin 14.7 g/dL (12.0-16.0); Immature Granulocytes # (auto) 0.02 K/uL (0.00-0.02); Immature Granulocytes % (auto) 0.2 %; Lymphocytes # (auto) 0.71 K/uL (1.2-3.4); Lymphocytes % (auto) 7.3 %; Mean Corpuscular Hgb Conc 33.3 g/dL (32-36); Mean Corpuscular Volume 96.3 fL (80-100); Mean Platelet Volume 10.8 fL (7.4-10.4); Monocytes # (auto) 0.65 K/uL (0.11-0.59); Monocytes % (auto) 6.7 %; Neutrophils # (auto) 8.32 K/uL (1.4-6.5); Neutrophils % (auto) 85.7 %; Platelet Count 196 K/uL (130-400); RDW Coefficient of Variation 14.3 % (11.5-14.5); RDW Standard Deviation 50.5 fL (36.4-46.3); Red Blood Count 4.59 M/uL (4.2-5.4); White Blood Count 9.71 K/uL (4.8-10.8)
[2019-03-16 19:22] LABS: iSTAT Creatinine 0.7 mg/dl (0.6-1.3); iSTAT Hemoglobin 15.6 g/dl (12.0-16.0); iSTAT Ionized Calcium 1.05 mmol/l (1.12-1.32); iSTAT Potassium 4.4 mEq/L (3.3-5.0)
[2019-03-16 19:37] LABS: Alanine Aminotransferase 33 U/L (12-78); Albumin Level 4.2 gm/dl (3.4-5.0); Aspartate Aminotransferase 14 U/L (15-37); BUN Creatinine Ratio 19.9 (10-20); Bilirubin Direct 0.3 mg/dl (0-0.2); Blood Urea Nitrogen 19 mg/dl (7-18); Calcium 9.6 mg/dl (8.5-10.1); Carbon Dioxide 25 mmol/L (21-32); Chloride 104 mmol/L (98-107); Creatinine Clr Calc Pharmacy 32.3 ml/min; Est GFR (Non-African American) 59.5; Glucose 164 mg/dl (70-99); Lipase 187 U/L (73-393); Magnesium 2.1 mg/dl (1.8-2.4); Potassium 4.2 mmol/L (3.5-5.1); Sodium 138 mmol/L (136-145)
[2019-03-16 19:40] LABS: Albumin Globulin Ratio 0.9 (0.9-2); Alkaline Phosphatase 67 U/L (45-117); Bilirubin,Total 1.2 mg/dl (0.2-1); Globulin 4.5 gm/dl (2.5-4.0); Phosphorus 3.3 mg/dl (2.5-4.9); Total Protein 8.7 gm/dl (6.4-8.2); Troponin I < 0.015 ng/ml (0-0.045)
[2019-03-16] MEDS ORDERED: IOVERSOL 100ml IV PRN (20:07)
--- NOTE | 2019-03-16 20:28 | CT Scan Report ---
CT abd pelvis IV con only CLINICAL HISTORY: 73 years-old Female presenting with generalized abdominal pain,n/v, h/o sbo. TECHNIQUE: Multidetector CT of the abdomen and pelvis was performed after the administration of intra venous contrast. IV contrast: 93 mL of Optiray 320. One or more dose lowering techniques were used co nsistent with the principles of ALARA (as low as reasonably achievable), including automatic exposure control, mA or kV adjustment to individual patient size, and/or use of iterative reconstruction. COMPARISON: 12/30/2018. CT DOSE (mGy.cm): The estimated cumulative dose is 266.16 mGy.cm. FINDINGS: Deportation Officer topogram: Unremarkable. Lung bases: Mass effect on the anterior aspect of the heart as on prior exam and the setting of the e sophagectomy changes with gastric pull-through. Coronary artery calcification. Normal heart size. No pericardial or pleural effusion. Tree-in-bud opacities in the right middle lobe and right lower lobe and less extensively in the lateral basal left lower lobe and lingula. Liver: Normal morphology. Multiple well-defined hypodense lesions likely hepatic cysts or hamartomas. Patent hepatic vasculature. Biliary: Mild central intrahepatic and extra hepatic ductal prominence. Normal gallbladder. Pancreas: Normal. Spleen: Normal. Adrenal glands: Normal. Kidneys and ureters: Several small cysts bilaterally. Mild bilateral pelvocaliectasis as on prior exa m. An obstructing or partially obstructing 7 mm calculus in the proximal left ureter at the level of the ureteropelvic junction is again noted. Mild urothelial thickening on the left as on prior. Severa l smaller partially obstructing calculi in the proximal right ureter measuring up to 4 mm. These appe ar new from prior. Additional nonobstructing right renal calculi. Bladder: Incompletely evaluated secondary to underdistention. No bladder calculi. Pelvic organs: Uterus and ovaries normal. Bowel: Mild wall thickening of the rectum, which extends proximally to involve the left colon. This i s slightly increased from prior. There is a focal intussusception in the left abdomen within the jeju num resulting in obstruction. This configuration was present on the prior exam. There is greater asso ciated downstream wall thickening of small bowel. Postsurgical changes of esophagectomy with anterior mediastinal gastric pull through. The appendix is normal. Peritoneal cavity: Small volume of abdominal pelvic ascites. No free intraperitoneal gas. Lymph nodes: No enlarged lymph nodes in the abdomen or pelvis. Vasculature: Atherosclerosis of the normal caliber abdominal aorta. IVC patent. Abdominal wall: Normal. Musculoskeletal: Degenerative changes of the spine. IMPRESSION: 1. Interval development of multiple partially obstructing proximal right ureteral calculi with mild right hydronephrosis. 2. Redemonstration of a partially obstructing 7 mm proximal left ureteral calculus with mild left hy dronephrosis, which is chronic. 3. Redemonstration of intussusception in the left midabdomen though there is greater downstream smal l bowel wall thickening. The degree of obstruction is unchanged. Correlate for change in symptomatolo gy given the presence of greater small bowel wall edema. This could represent congestive change in th e setting of a venolymphatic obstruction among other etiologies. 4. Interval development of colonic wall thickening in the left colon extending to the rectum. This c ould represents a colitis. 5. Tree-in-bud opacities at the lung bases may relate to chronic aspiration or infectious bronchioli tis. 6. Additional findings as above. Electronically signed by: Darrian Hernandez M.D. 03/16/2019 8:26 PM
--- NOTE | 2019-03-16 22:18 | Surgery Consultation ---
Date of Consultation March 16, 2019 Assessment & Plan (1) Partial bowel obstruction: Nonoperative management at the present time and would place NG tube if the patient continues with nausea and vomiting May consider GI evaluation Patient has expressed interest in the past that if she requires surgical intervention be performed at a tertiary care center And I tend to agree with her complicated history She apparently is returning to [facility] in May Intestinal obstruction type: unspecified Qualified Code(s): K56.600 - Partial intestinal obstruction, unspecified as to cause History of Present Illness History of Present Illness ER physician called me guarding patient with recurrent epigastric pain nausea and vomiting with a history of partial small bowel obstruction with resolution in January 2019 in February 2018 Is a history of esophageal cancer with esophagectomy and gastric pull-up in [place] 2017 She apparently lives alone and is here with her dye weigher Her CT scan shows similar changes as before dilated duodenum and jejunum and possible intussusception decompressed distal small bowel. She also has evidence of right and left ureteral calculi right hydronephrosis and possible colitis White blood cell count normal Allergies Allergy/AdvReac Type Severity Reaction Status Date / Time clindamycin AdvReac Severe Unknown Unverified 12/30/18 11:47 Home Medications Home Medications Medication Instructions Recorded Confirmed Type vitamin [id number] acid 1 tab PO DAILY 12/30/18 12/30/18 History docusate sodium [Colace] 100 mg PO BID #1 cap 01/02/19 Rx polyethylene glycol 3350 [Miralax] 17 gm PO DAILY PRN #1 ea 01/02/19 Rx potassium chloride 20 meq PO DAILY #1 tab 01/02/19 Rx Patient History Medical History History of esophageal cancer (Chronic) Small bowel obstruction (Acute) Esophageal carcinoma Status post esophagectomy in October 2017 HLD (hyperlipidemia) Multiple lung nodules Multiple thyroid nodules Benign per biopsy results Osteoporosis ST segment changes on electrocardiogram Small bowel obstruction Surgical History History of esophagectomy October 2017, entire [facility] Family History Other Family history non-contributory Social History Preferred Language: Mandarin Tajik Communication Ability: Effective Communication Tools: IPad and Other Account Coordinator Required: Yes, Video and Voice Beliefs That Will Affect Care: Gnosticist Gnosticist Beliefs: Evangelical Current Living Situation: Alone Feels Safe at Home: Yes Smoking Status: Never smoker Second Hand Exposure: No ; Hx Alcohol Use: No Hx Substance Use: No Review of Systems Review of Systems: All systems reviewed & are unremarkable except as noted in HPI & below Physical Exam Physical Exam: Patient currently is in her ER bed in no distress responsive answering to the dye weigher and myself with him interpreting Her abdomen is flat and soft she does have some bowel sounds with minimal tenderness She is in no distress Constitutional: well developed and well nourished; no acute distress Eyes: + anicteric sclerae Respiratory: normal respiratory effort; no respiratory distress Cardiovascular: Rate/Rhythm: regular rate Gastrointestinal (Abdomen): Percussion/Palpation: abdomen soft Skin: no rashes, warm and dry Neurologic: awake Psychiatric: Orientation: alert Results & Data Vital Signs (Past 12 Hours) Vital Signs Temp Pulse Pulse Resp BP BP Pulse Ox 03/16/19 20:18 77 16 128/67 99 03/16/19 18:21 36.8 C 76 20 158/83 H 100 PG Care Time/CCT Total # of Minutes Spent Total Time Spent with Patient: Total time spent is greater than 50% in coordination of care (as documented) at patient's floor/unit and/or counseling patient:
[2019-03-16 23:01] LABS: Appearance Urine Clear (Clear); Bilirubin Urine Negative (Negative); Blood Urine 3+ (Negative); Color Urine Yellow; Glucose Urine UA Negative (Negative); Ketones Urine Trace (Negative); Leukocyte Esterase Urine Negative (Negative); Nitrite Urine Negative (Negative); Protein Urine Trace (Negative); Specific Gravity Urine <= 1.005 (1.000-1.030); Urobilinogen Urine Negative (Negative); pH Urine 6.5 (4.5-7.5)
[2019-03-16 23:04] LABS: Bacteria Urine 1+ (Negative); RBC Urine >30 /hpf (0-4); WBC Urine 0-5 /hpf (0-5)
--- NOTE | 2019-03-16 23:07 | History & Physical Report ---
Date of Service March 16, 2019 Assessment & Plan (1) Partial bowel obstruction: This is a 73-year-old female who presents with persistent severe epigastric abdominal pain x1 day with emesis. Intolerance of solids or liquids. PMH of esophageal cancer, status post distal esophagectomy in October 2017 in [facility]. Normal BM x 1 this am. Denies dysuria, hematuria, hematemesis, melena, diarrhea. Endorses epigastric "tightness". History given via i-pad cranberry bog supervisor. Pt speaks Mandarin. ED course: famotidine, IV tylenol, NSS, compazine Assessment: -Intractable abdominal pain -- Secondary to partial bowel obstruction -Chest x-ray appears like an enlargement of the cardiopericardial silhouette, however CT abdomen pelvis reveals postsurgical changes of esophagectomy with anterior mediastinal gastric pull-through at the level of where the cardiac silhouette would be. Negative for cardiomegaly or pericardial effusion or pleural effusion. -CT scan of the abdomen goes on to show redemonstration of intussusception in the left mid abdomen with greater downstream small bowel wall thickening. Degree of obstruction is unchanged. Interval development of colonic wall thickening in the left colon extending to the rectum, possible colitis. -Redemonstration of partially obstructing 7 mm proximal left ureteral calculus with mild left hydronephrosis which is chronic. -CBC and CMP without significant abnormalities, improved calcium since January. Negative troponin. Negative lipase. Plan: -Seen by general surgery in the ED, appreciate recommendations. Patient is currently not vomiting, pain is at 0 upon my evaluation. We will keep her n.p.o. and hydrate with fluids. Will defer NG tube at this time. -continue famotidine for symptomatic care -KUB upright in a.m. -Follow BMP -If pain-free overnight, would recommend advance diet as tolerated. Currently pain is controlled with IV Tylenol. FEN/GI: NPO except sip/meds, IVF running at maintenance DVT ppx: SCDs CODE STATUS: DNR/DNI as d/w patient DISPO: med/surg (2) Abdominal pain: as above (3) Nausea: IV zofran PRN (4) History of esophagectomy: as above (5) Left ureteral stone: -Redemonstration of partially obstructing 7 mm proximal left ureteral calculus with mild left hydronephrosis which is chronic. -h/o urological procedure in [place], possible lithotripsy in past. -Declined lithotripsy at last admission, kidney function is stable. History of Present Illness Chief Complaint: Abdominal pain, bilateral shoulder pain, emesis Primary Care Provider: Cesar Michelle MD This is a 73-year-old female who presents with persistent severe epigastric abdominal pain x1 day with emesis. Intolerance of solids or liquids. PMH of esophageal cancer, status post distal esophagectomy in October 2017 in [facility]. Normal BM x 1 this am. Denies dysuria, hematuria, hematemesis, melena, diarrhea. Endorses epigastric "tightness". History given via i-pad cranberry bog supervisor. Pt speaks Mandarin. ED course: famotidine, IV tylenol, NSS, compazine Allergies Allergy/AdvReac Type Severity Reaction Status Date / Time clindamycin AdvReac Severe SEE COMMENT Verified 03/16/19 23:36 alendronate sodium AdvReac Intermediate STOMACH Verified 03/16/19 23:36 [From Fosamax] PAIN Home Medications Home Medications Medication Instructions Recorded Confirmed Type docusate sodium [Colace] 100 mg PO BID #1 cap 01/02/19 03/16/19 Rx potassium chloride 20 meq PO DAILY #1 tab 01/02/19 03/16/19 Rx benzonatate [Tessalon Perles] 100 mg PO TID PRN 03/16/19 03/16/19 History cholecalciferol (vitamin D3) 2,000 unit PO DAILY 03/16/19 03/16/19 History [Vitamin D3] cyanocobalamin (vitamin B-12) 500 mcg PO DAILY 03/16/19 03/16/19 History [Vitamin B-12] zolpidem [Ambien] 5 mg PO HS PRN 03/16/19 03/16/19 History Past Med/Surg History Medical History History of esophageal cancer (Chronic) Small bowel obstruction (Acute) Esophageal carcinoma Status post esophagectomy in October 2017 HLD (hyperlipidemia) Multiple lung nodules Multiple thyroid nodules Benign per biopsy results Osteoporosis ST segment changes on electrocardiogram Small bowel obstruction Surgical History History of esophagectomy (Chronic) History of esophagectomy October 2017, entire [facility] Family History Other Family history non-contributory Social History Preferred Language: Mandarin Slovenian Communication Ability: Effective Communication Tools: IPad and Other Turbogenerator Operator Required: Yes Beliefs That Will Affect Care: None Current Living Situation: Alone and Family Feels Safe at Home: Yes Safety Concerns: Feels Safe At This Time Smoking Status: Never smoker Second Hand Exposure: No ; Hx Alcohol Use: No Hx Substance Use: No Review of Systems Review of Systems: Normal BM x 1 this am. Denies dysuria, hematuria, hematemesis, melena, diarrhea. Endorses epigastric "tightness". Physical Exam Physical Exam: Vitals noted and within normal limits GENERAL: Awake, alert to person, place, and time, nontoxic-appearing, in no distress. HENT: Normocephalic, atraumatic. Mucus membranes appear dry. EYES: Normal conjunctiva. Sclera non-icteric. EOMI. NECK: Supple. Full range of motion. No JVD. RESPIRATORY: Clear to auscultation. Normal work of breathing. CARDIAC: Regular rate, normal rhythm. Extremities warm and well perfused, 2+ radial pulses bilaterally; 2+ posterior tibialis pulses bilaterally. ABDOMEN: Soft, non-distended. Mild tenderness to palpation in epigastrium. No rebound or guarding. No masses. Bowel sounds are normal. LOWER EXTREMITIES: Inspection of calves reveal equal size bilaterally. They are non-tender. No edema. No discoloration. NEURO: No gross focal motor deficits noted. Sensation in tact. CN II-XII grossly in tact. . SKIN: Rash not present. No jaundice noted. Significant lesions not present. PSYCH: Appropriate mood and affect. Cooperative. Exam as done by Sonja Muñiz MD, Meat Stock Clerk. Results & Data Vital Signs (Past 12 Hours) Vital Signs Temp Pulse Pulse Resp BP BP Pulse Ox 03/16/19 22:37 97 03/16/19 22:34 72 18 126/57 L 97 03/16/19 22:20 75 13 97 03/16/19 22:10 74 18 98 03/16/19 20:18 77 16 128/67 99 03/16/19 20:17 77 18 128/67 99 03/16/19 18:21 36.8 C 76 20 158/83 H 100 Laboratory Results 03/16/19 03/16/19 03/16/19 Range/Units 22:27 19:09 19:05 WBC (4.8-10.8) K/uL RBC (4.2-5.4) M/uL Hgb (12.0-16.0) g/dL POC Hgb 15.6 (12.0-16.0) g/dl Hct (37-47) % POC Hct 46 (37-47) % MCV (80-100) fL MCH (25-34) pg MCHC (32-36) g/dL RDW Std Deviation (36.4-46.3) fL RDW Coeff of Jimenez (11.5-14.5) % Plt Count (130-400) K/uL MPV (7.4-10.4) fL Immature Gran % (Auto) % Neut % (Auto) % Lymph % (Auto) % [place] % (Auto) % Eos % (Auto) % Baso % (Auto) % Immature Gran # (Auto) (0.00-0.02) K/uL Neut # (Auto) (1.4-6.5) K/uL Lymph # (Auto) (1.2-3.4) K/uL [place] # (Auto) (0.11-0.59) K/uL Eos # (Auto) (0-0.5) K/uL Baso # (Auto) (0-0.2) K/uL POC Sodium 139 (135-144) mEq/L Sodium 138 (136-145) mmol/L POC Potassium 4.4 (3.3-5.0) mEq/L Potassium 4.2 (3.5-5.1) mmol/L POC Chloride 103 (101-112) mEq/L Chloride 104 (98-107) mmol/L Carbon Dioxide 25 (21-32) mmol/L POC Total CO2 25 (24-31) mEq/l Anion Gap 9.0 (3-11) POC Anion Gap 17.0 (16-25) mmol/L POC BUN 20 H (7-18) mg/dl BUN 19 H (7-18) mg/dl Creatinine 0.96 (0.6-1.2) mg/dl POC Creatinine 0.7 (0.6-1.3) mg/dl Est Cr Clr Drug Dosing 32.3 ml/min Est GFR ( Amer) 69.0 Est GFR (Non-Af Amer) 59.5 BUN/Creatinine Ratio 19.9 (10-20) Glucose 164 H (70-99) mg/dl POC Glucose (other) 169 H (70-99) mg/dl Calcium 9.6 (8.5-10.1) mg/dl POC Ioniz Calcium Mony 1.05 L (1.12-1.32) mmol/l Phosphorus 3.3 (2.5-4.9) mg/dl Magnesium 2.1 (1.8-2.4) mg/dl Total Bilirubin 1.2 H (0.2-1) mg/dl Direct Bilirubin 0.3 H (0-0.2) mg/dl AST 14 L (15-37) U/L ALT 33 (12-78) U/L Alkaline Phosphatase 67 (45-117) U/L Troponin I < 0.015 (0-0.045) ng/ml Total Protein 8.7 H (6.4-8.2) gm/dl Albumin 4.2 (3.4-5.0) gm/dl Globulin 4.5 H (2.5-4.0) gm/dl Albumin/Globulin Ratio 0.9 (0.9-2) Lipase 187 (73-393) U/L Urine Color Yellow Urine Appearance Clear (Clear) Urine pH 6.5 (4.5-7.5) Ur Specific [place] <= 1.005 (1.000-1.030) Urine Protein Trace H (Negative) Urine Glucose (UA) Negative (Negative) Urine Ketones Trace H (Negative) Urine Blood 3+ H (Negative) Urine Nitrite Negative (Negative) Urine Bilirubin Negative (Negative) Urine Urobilinogen Negative (Negative) Ur Leukocyte Esterase Negative (Negative) Urine RBC >30 H (0-4) /hpf Urine WBC 0-5 (0-5) /hpf Ur Epithelial Cells 10-20 H (0-5) /lpf Urine Bacteria 1+ H (Negative) 03/16/19 Range/Units 19:05 WBC 9.71 (4.8-10.8) K/uL RBC 4.59 (4.2-5.4) M/uL Hgb 14.7 (12.0-16.0) g/dL POC Hgb (12.0-16.0) g/dl Hct 44.2 (37-47) % POC Hct (37-47) % MCV 96.3 (80-100) fL MCH 32.0 (25-34) pg MCHC 33.3 (32-36) g/dL RDW Std Deviation 50.5 H (36.4-46.3) fL RDW Coeff of Jimenez 14.3 (11.5-14.5) % Plt Count 196 (130-400) K/uL MPV 10.8 H (7.4-10.4) fL Immature Gran % (Auto) 0.2 % Neut % (Auto) 85.7 % Lymph % (Auto) 7.3 % [place] % (Auto) 6.7 % Eos % (Auto) 0.0 % Baso % (Auto) 0.1 % Immature Gran # (Auto) 0.02 (0.00-0.02) K/uL Neut # (Auto) 8.32 H (1.4-6.5) K/uL Lymph # (Auto) 0.71 L (1.2-3.4) K/uL [place] # (Auto) 0.65 H (0.11-0.59) K/uL Eos # (Auto) 0.00 (0-0.5) K/uL Baso # (Auto) 0.01 (0-0.2) K/uL POC Sodium (135-144) mEq/L Sodium (136-145) mmol/L POC Potassium (3.3-5.0) mEq/L Potassium (3.5-5.1) mmol/L POC Chloride (101-112) mEq/L Chloride (98-107) mmol/L Carbon Dioxide (21-32) mmol/L POC Total CO2 (24-31) mEq/l Anion Gap (3-11) POC Anion Gap (16-25) mmol/L POC BUN (7-18) mg/dl BUN (7-18) mg/dl Creatinine (0.6-1.2) mg/dl POC Creatinine (0.6-1.3) mg/dl Est Cr Clr Drug Dosing ml/min Est GFR ( Amer) Est GFR (Non-Af Amer) BUN/Creatinine Ratio (10-20) Glucose (70-99) mg/dl POC Glucose (other) (70-99) mg/dl Calcium (8.5-10.1) mg/dl POC Ioniz Calcium Mony (1.12-1.32) mmol/l Phosphorus (2.5-4.9) mg/dl Magnesium (1.8-2.4) mg/dl Total Bilirubin (0.2-1) mg/dl Direct Bilirubin (0-0.2) mg/dl AST (15-37) U/L ALT (12-78) U/L Alkaline Phosphatase (45-117) U/L Troponin I (0-0.045) ng/ml Total Protein (6.4-8.2) gm/dl Albumin (3.4-5.0) gm/dl Globulin (2.5-4.0) gm/dl Albumin/Globulin Ratio (0.9-2) Lipase (73-393) U/L Urine Color Urine Appearance (Clear) Urine pH (4.5-7.5) Ur Specific [place] (1.000-1.030) Urine Protein (Negative) Urine Glucose (UA) (Negative) Urine Ketones (Negative) Urine Blood (Negative) Urine Nitrite (Negative) Urine Bilirubin (Negative) Urine Urobilinogen (Negative) Ur Leukocyte Esterase (Negative) Urine RBC (0-4) /hpf Urine WBC (0-5) /hpf Ur Epithelial Cells (0-5) /lpf Urine Bacteria (Negative) Supervising Physician Co-Signing Physician Notes Attending addendum: I have physically seen this patient, have supervised the medical residents activities, and agree with the H&P unless as otherwise noted. Assessment and Plan: Partial small bowel obstruction- NPO. IV fluids. NSS Famotidine 20 mg IV every 12 hours. Acetaminophen 1 g IV every 8 hours PRN. Seen by general surgery in the ED, will continue consult. 7 mm proximal left ureteral calculus/mild left hydronephrosis- Chronic. Has declined lithotripsy previous admission Consult urology. Follow urine culture and sensitivity. Remainder of orders and notations as noted. PG Care Time/CCT Total # of Minutes Spent Total Time Spent with Patient: Total time spent is greater than 50% in coordination of care (as documented) at patient's floor/unit and/or counseling patient: Resident Activity Tracking Resident Involvement: Resident Care Provided Care Provided: Adult Hospital Medicine (1) Partial bowel obstruction Intestinal obstruction type: unspecified Qualified Code(s): K56.600 - Partial intestinal obstruction, unspecified as to cause (2) Abdominal pain Abdominal location: unspecified location Qualified Code(s): R10.9 - U nspecified abdominal pain
--- NOTE | 2019-03-17 00:24 | Emergency Department Note ---
Entered by Nina Huerta acting as a scribe for Gary Banerjee MD History of Present Illness General Chief complaint: Abdominal Pain Stated complaint: BACK ACHE,STOMACH PAIN,MUCOUS Time Seen by Provider: 03/16/19 18:30 Source: patient History of Present Illness Provider complaint: Abdominal Pain Onset (ago): day(s) 1 Location: abdomen Radiation: back Pain Consistency: + constant Maximum Pain Intensity: 9 Associated symptoms: + denies other symptoms (Hematuria ) and + nausea/vomiting The patient is a 73 year old female who presents to the Emergency Room with complaints of constant abdominal pain that began yesterday. The patient states the pain radiates to her back and the patient reports experiencing nausea /vomiting but denies any hematuria. Home Medications Home Medications Medication Instructions Recorded Confirmed Type docusate sodium [Colace] 100 mg PO BID #1 cap 01/02/19 03/16/19 Rx potassium chloride 20 meq PO DAILY #1 tab 01/02/19 03/16/19 Rx benzonatate [Tessalon Perles] 100 mg PO TID PRN 03/16/19 03/16/19 History cholecalciferol (vitamin D3) 2,000 unit PO DAILY 03/16/19 03/16/19 History [Vitamin D3] cyanocobalamin (vitamin B-12) 500 mcg PO DAILY 03/16/19 03/16/19 History [Vitamin B-12] zolpidem [Ambien] 5 mg PO HS PRN 03/16/19 03/16/19 History Allergies Allergy/AdvReac Type Severity Reaction Status Date / Time clindamycin AdvReac Severe SEE COMMENT Verified 03/16/19 23:36 alendronate sodium AdvReac Intermediate STOMACH Verified 03/16/19 23:36 [From Fosamax] PAIN Past Med/Surg History Medical History History of esophageal cancer (Chronic) Small bowel obstruction (Acute) Esophageal carcinoma Status post esophagectomy in October 2017 HLD (hyperlipidemia) Multiple lung nodules Multiple thyroid nodules Benign per biopsy results Osteoporosis ST segment changes on electrocardiogram Small bowel obstruction Surgical History History of esophagectomy (Chronic) History of esophagectomy October 2017, entire [facility] Family History Other Family history non-contributory Social History Preferred Language: Mandarin Yi Communication Ability: Effective Communication Tools: IPad and Other Terrazzo Helper Required: Yes Beliefs That Will Affect Care: None Current Living Situation: Alone and Family Feels Safe at Home: Yes Safety Concerns: Feels Safe At This Time Smoking Status: Never smoker Second Hand Exposure: No ; Hx Alcohol Use: No Hx Substance Use: No Review of Systems See HPI for pertinent positives & negatives. and A total of 10 systems reviewed and were otherwise negative Physical Exam Vital Signs Vital Signs - 24 hr 03/16/19 18:21 03/16/19 20:17 03/16/19 20:18 Temperature 36.8 C Temperature Source Oral Sepsis Recent Fever Within 48 Hours No Sepsis New/Unexplained Change in Mental Status No Sepsis Action Taken by Nursing No Action Required Pulse Rate 76 77 Pulse Rate [Right Finger] 77 Pulse Rate from SpO2 Sensor 78 Respiratory Rate 20 18 16 Blood Pressure 158/83 H 128/67 Blood Pressure [Right Arm] 128/67 Blood Pressure Mean 108 87 Blood Pressure Mean [Right Arm] 87 Blood Pressure Position [Right Arm] Sitting Pulse Oximetry 100 99 99 Oxygen Delivery Method Room Air Room Air 03/16/19 22:10 03/16/19 22:20 03/16/19 22:34 Temperature Temperature Source Sepsis Recent Fever Within 48 Hours Sepsis New/Unexplained Change in Mental Status Sepsis Action Taken by Nursing Pulse Rate 74 75 72 Pulse Rate [Right Finger] Pulse Rate from SpO2 Sensor 74 75 73 Respiratory Rate 18 13 18 Blood Pressure 126/57 L Blood Pressure [Right Arm] Blood Pressure Mean 80 Blood Pressure Mean [Right Arm] Blood Pressure Position [Right Arm] Pulse Oximetry 98 97 97 Oxygen Delivery Method 03/16/19 22:37 03/16/19 23:00 Temperature Temperature Source Sepsis Recent Fever Within 48 Hours Sepsis New/Unexplained Change in Mental Status Sepsis Action Taken by Nursing Pulse Rate 73 Pulse Rate [Right Finger] Pulse Rate from SpO2 Sensor 73 Respiratory Rate 18 Blood Pressure 116/56 L Blood Pressure [Right Arm] Blood Pressure Mean 76 Blood Pressure Mean [Right Arm] Blood Pressure Position [Right Arm] Pulse Oximetry 97 97 Oxygen Delivery Method Room Air GENERAL: Awake, alert, uncomfortable-appearing, in no distress HENT: Normocephalic, atraumatic. Oropharynx with dry mucous membranes and otherwise unremarkable. . EYES: Normal conjunctiva. Sclera non-icteric. NECK: Supple. No nuchal rigidity. FROM. No JVD. RESPIRATORY: Scant intermittent wheeze, otherwise clear. CARDIAC: Regular rate, normal rhythm. Extremities warm and well perfused. Pulses equal. ABDOMEN: Soft, non-distended. Mild epigastric tenderness. No rebound or guarding. No masses. RECTAL: Deferred. MUSCULOSKELETAL: Chest examination reveals no tenderness. The back is symmetrical on inspection without obvious abnormality. There is no CVA tenderness to palpation. No joint edema. LOWER EXTREMITIES: Calves are equal size bilaterally and non-tender. No edema. No discoloration. NEURO: Normal sensorium. No sensory or motor deficits noted. SKIN: No rash or jaundice noted. Course 1854: Past medical records reviewed. The patient was evaluated in room C03. A complete history and physical exam was performed. 2146: I spoke to Dr. Pierce- General Surgery about the patient's case and he recommends we bring the patient in for further evaluation. 3: I spoke with Dr. Miles- [place] [facility] about the patient's case and he will accept the patient for further evaluation. Administered Medications Potassium Chloride/Dextrose/Sod Cl (D5w And 1/2nss + 20meq Kcl) 20 meq in 1,000 mls @ 80 mls/hr IV .[id number] SIMONE Stop: 04/16/19 01:04 Last Admin: 03/17/19 01:55 Dose: 80 mls/hr Documented by: [id number] Discontinued Medications Sodium Chloride (Nss) 500 mls @ 999 mls/hr IV .Q31M ONE Stop: 03/16/19 19:00 Last Infusion: 03/16/19 20:03 Dose: 0 mls/hr Documented by: [id number] Admin: 03/16/19 19:20 Dose: 999 mls/hr Documented by: [id number] Prochlorperazine (Compazine) 1 mls @ 1 mls/min IV NOW STA Stop: 03/16/19 19:00 Last Admin: 03/16/19 19:21 Dose: 1 mls/min Documented by: [id number] Famotidine (Pepcid 20mg Iv Push) 20 mg in 5 mls @ 2.5 mls/min IV NOW STA Stop: 03/16/19 19:00 Last Admin: 03/16/19 19:21 Dose: 2.5 mls/min Documented by: [id number] Acetaminophen (Ofirmev) 1,000 mg in 100 mls @ 400 mls/hr IV NOW STA Stop: 03/16/19 19:14 Last Infusion: 03/16/19 20:03 Dose: 0 mls/hr Documented by: [id number] Admin: 03/16/19 19:21 Dose: 400 mls/hr Documented by: [id number] Ioversol (Optiray 320 100ml) 93 ml IV ONCE PRN PRN Reason: Interaction Checking Stop: 03/20/19 20:06 Last Admin: 03/16/19 20:07 Dose: 93 ml Documented by: [id number] Medical Decision Making Differential Diagnosis Differential diagnosis: Etiologies such as biliary colic, cholecystitis, hepatitis, perihepatitis, pancreatitis, cardiac disease, pancreatitis, gastritis, peptic ulcer disease, appendicitis, ovarian cyst, ovarian torsion, ectopic , pelvic inflammatory disease, cystitis, diverticulitis, mesenteric ischemia, inflammatory bowel disease, ileus, bowel obstruction, aortic pathology, shingles, as well as others were considered. Medical Records Attestation: I reviewed the patient's medical records. Home Medications Current Medication List: was personally reviewed by me Laboratory Data Attestation: I reviewed the patient's lab results. Result diagrams: 03/16/19 19:05 03/16/19 19:05 Lab Results 03/16/19 03/16/19 03/16/19 Range/Units 19:05 19:05 19:09 WBC 9.71 (4.8-10.8) K/uL RBC 4.59 (4.2-5.4) M/uL Hgb 14.7 (12.0-16.0) g/dL POC Hgb 15.6 (12.0-16.0) g/dl Hct 44.2 (37-47) % POC Hct 46 (37-47) % MCV 96.3 (80-100) fL MCH 32.0 (25-34) pg MCHC 33.3 (32-36) g/dL RDW Std Deviation 50.5 H (36.4-46.3) fL RDW Coeff of Jimenez 14.3 (11.5-14.5) % Plt Count 196 (130-400) K/uL MPV 10.8 H (7.4-10.4) fL Immature Gran % (Auto) 0.2 % Neut % (Auto) 85.7 % Lymph % (Auto) 7.3 % Imperial % (Auto) 6.7 % Eos % (Auto) 0.0 % Baso % (Auto) 0.1 % Immature Gran # (Auto) 0.02 (0.00-0.02) K/uL Neut # (Auto) 8.32 H (1.4-6.5) K/uL Lymph # (Auto) 0.71 L (1.2-3.4) K/uL Imperial # (Auto) 0.65 H (0.11-0.59) K/uL Eos # (Auto) 0.00 (0-0.5) K/uL Baso # (Auto) 0.01 (0-0.2) K/uL POC Sodium 139 (135-144) mEq/L Sodium 138 (136-145) mmol/L POC Potassium 4.4 (3.3-5.0) mEq/L Potassium 4.2 (3.5-5.1) mmol/L POC Chloride 103 (101-112) mEq/L Chloride 104 (98-107) mmol/L Carbon Dioxide 25 (21-32) mmol/L POC Total CO2 25 (24-31) mEq/l Anion Gap 9.0 (3-11) POC Anion Gap 17.0 (16-25) mmol/L POC BUN 20 H (7-18) mg/dl BUN 19 H (7-18) mg/dl Creatinine 0.96 (0.6-1.2) mg/dl POC Creatinine 0.7 (0.6-1.3) mg/dl Est Cr Clr Drug Dosing 32.3 ml/min Est GFR ( Amer) 69.0 Est GFR (Non-Af Amer) 59.5 BUN/Creatinine Ratio 19.9 (10-20) Glucose 164 H (70-99) mg/dl POC Glucose (other) 169 H (70-99) mg/dl Calcium 9.6 (8.5-10.1) mg/dl POC Ioniz Calcium Mony 1.05 L (1.12-1.32) mmol/l Phosphorus 3.3 (2.5-4.9) mg/dl Magnesium 2.1 (1.8-2.4) mg/dl Total Bilirubin 1.2 H (0.2-1) mg/dl Direct Bilirubin 0.3 H (0-0.2) mg/dl AST 14 L (15-37) U/L ALT 33 (12-78) U/L Alkaline Phosphatase 67 (45-117) U/L Troponin I < 0.015 (0-0.045) ng/ml Total Protein 8.7 H (6.4-8.2) gm/dl Albumin 4.2 (3.4-5.0) gm/dl Globulin 4.5 H (2.5-4.0) gm/dl Albumin/Globulin Ratio 0.9 (0.9-2) Lipase 187 (73-393) U/L Urine Color Urine Appearance (Clear) Urine pH (4.5-7.5) Ur Specific [place] (1.000-1.030) Urine Protein (Negative) Urine Glucose (UA) (Negative) Urine Ketones (Negative) Urine Blood (Negative) Urine Nitrite (Negative) Urine Bilirubin (Negative) Urine Urobilinogen (Negative) Ur Leukocyte Esterase (Negative) Urine RBC (0-4) /hpf Urine WBC (0-5) /hpf Ur Epithelial Cells (0-5) /lpf Urine Bacteria (Negative) 03/16/19 Range/Units 22:27 WBC (4.8-10.8) K/uL RBC (4.2-5.4) M/uL Hgb (12.0-16.0) g/dL POC Hgb (12.0-16.0) g/dl Hct (37-47) % POC Hct (37-47) % MCV (80-100) fL MCH (25-34) pg MCHC (32-36) g/dL RDW Std Deviation (36.4-46.3) fL RDW Coeff of Jimenez (11.5-14.5) % Plt Count (130-400) K/uL MPV (7.4-10.4) fL Immature Gran % (Auto) % Neut % (Auto) % Lymph % (Auto) % Imperial % (Auto) % Eos % (Auto) % Baso % (Auto) % Immature Gran # (Auto) (0.00-0.02) K/uL Neut # (Auto) (1.4-6.5) K/uL Lymph # (Auto) (1.2-3.4) K/uL Imperial # (Auto) (0.11-0.59) K/uL Eos # (Auto) (0-0.5) K/uL Baso # (Auto) (0-0.2) K/uL POC Sodium (135-144) mEq/L Sodium (136-145) mmol/L POC Potassium (3.3-5.0) mEq/L Potassium (3.5-5.1) mmol/L POC Chloride (101-112) mEq/L Chloride (98-107) mmol/L Carbon Dioxide (21-32) mmol/L POC Total CO2 (24-31) mEq/l Anion Gap (3-11) POC Anion Gap (16-25) mmol/L POC BUN (7-18) mg/dl BUN (7-18) mg/dl Creatinine (0.6-1.2) mg/dl POC Creatinine (0.6-1.3) mg/dl Est Cr Clr Drug Dosing ml/min Est GFR ( Amer) Est GFR (Non-Af Amer) BUN/Creatinine Ratio (10-20) Glucose (70-99) mg/dl POC Glucose (other) (70-99) mg/dl Calcium (8.5-10.1) mg/dl POC Ioniz Calcium [place] (1.12-1.32) mmol/l Phosphorus (2.5-4.9) mg/dl Magnesium (1.8-2.4) mg/dl Total Bilirubin (0.2-1) mg/dl Direct Bilirubin (0-0.2) mg/dl AST (15-37) U/L ALT (12-78) U/L Alkaline Phosphatase (45-117) U/L Troponin I (0-0.045) ng/ml Total Protein (6.4-8.2) gm/dl Albumin (3.4-5.0) gm/dl Globulin (2.5-4.0) gm/dl Albumin/Globulin Ratio (0.9-2) Lipase (73-393) U/L Urine Color Yellow Urine Appearance Clear (Clear) Urine pH 6.5 (4.5-7.5) Ur Specific [place] <= 1.005 (1.000-1.030) Urine Protein Trace H (Negative) Urine Glucose (UA) Negative (Negative) Urine Ketones Trace H (Negative) Urine Blood 3+ H (Negative) Urine Nitrite Negative (Negative) Urine Bilirubin Negative (Negative) Urine Urobilinogen Negative (Negative) Ur Leukocyte Esterase Negative (Negative) Urine RBC >30 H (0-4) /hpf Urine WBC 0-5 (0-5) /hpf Ur Epithelial Cells 10-20 H (0-5) /lpf Urine Bacteria 1+ H (Negative) Imaging Data Radiologist's Impression: Radiology results as stated below per my review and the radiologist's interpretation: XR chest 1V portable CLINICAL HISTORY: 73 years-old Female presenting with Chest Pain. TECHNIQUE: Portable upright AP view of the chest was obtained. COMPARISON: 03/02/2018. FINDINGS: Cardiopericardial silhouette enlarged, new from prior. No focal opacity. No large effusion or pneumothorax. Osseous structures normal. Upper abdomen normal. IMPRESSION: 1. Enlargement of the cardiopericardial silhouette, new from prior. This likely relates to cardiomegaly versus a pericardial effusion. No evidence of congestive change or pulmonary edema. Electronically signed by: Darrian Hernandez M.D. 03/16/2019 6:[address] abd pelvis IV con only CLINICAL HISTORY: 73 years-old Female presenting with generalized abdominal pain,n/v, h/o sbo. TECHNIQUE: Multidetector CT of the abdomen and pelvis was performed after the administration of intravenous contrast. IV contrast: 93 mL of Optiray 320. One or more dose lowering techniques were used consistent with the principles of ALARA (as low as reasonably achievable), including automatic exposure control, mA or kV adjustment to individual patient size, and/or use of iterative reconstruction. COMPARISON: 12/30/2018. CT DOSE (mGy.cm): The estimated cumulative dose is 266.16 mGy.cm. FINDINGS: [employer] Swe[employer]er topogram: Unremarkable. Lung bases: Mass effect on the anterior aspect of the heart as on prior exam and the setting of the esophagectomy changes with gastric pull-through. Coronary artery calcification. Normal heart size. No pericardial or pleural effusion. Tree-in-bud opacities in the right middle lobe and right lower lobe and less extensively in the lateral basal left lower lobe and lingula. Liver: Normal morphology. Multiple well-defined hypodense lesions likely hepatic cysts or hamartomas. Patent hepatic vasculature. Biliary: Mild central intrahepatic and extra hepatic ductal prominence. Normal gallbladder. Pancreas: Normal. Spleen: Normal. Adrenal glands: Normal. Kidneys and ureters: Several small cysts bilaterally. Mild bilateral pelvocaliectasis as on prior exam. An obstructing or partially obstructing 7 mm calculus in the proximal left ureter at the level of the ureteropelvic junction is again noted. Mild urothelial thickening on the left as on prior. Several smaller partially obstructing calculi in the proximal right ureter measuring up to 4 mm. These appear new from prior. Additional nonobstructing right renal calculi. Bladder: Incompletely evaluated secondary to underdistention. No bladder calculi. Pelvic organs: Uterus and ovaries normal. Bowel: Mild wall thickening of the rectum, which extends proximally to involve the left colon. This is slightly increased from prior. There is a focal intussusception in the left abdomen within the jejunum resulting in obstruction. This configuration was present on the prior exam. There is greater associated downstream wall thickening of small bowel. Postsurgical changes of esophagectomy with anterior mediastinal gastric pull through. The appendix is normal. Peritoneal cavity: Small volume of abdominal pelvic ascites. No free intraperitoneal gas. Lymph nodes: No enlarged lymph nodes in the abdomen or pelvis. Vasculature: Atherosclerosis of the normal caliber abdominal aorta. IVC patent. Abdominal wall: Normal. Musculoskeletal: Degenerative changes of the spine. IMPRESSION: 1. Interval development of multiple partially obstructing proximal right ureteral calculi with mild right hydronephrosis. 2. Redemonstration of a partially obstructing 7 mm proximal left ureteral calculus with mild left hydronephrosis, which is chronic. 3. Redemonstration of intussusception in the left midabdomen though there is greater downstream small bowel wall thickening. The degree of obstruction is unchanged. Correlate for change in symptomatology given the presence of greater small bowel wall edema. This could represent congestive change in the setting of a venolymphatic obstruction among other etiologies. 4. Interval development of colonic wall thickening in the left colon extending to the rectum. This could represents a colitis. 5. Tree-in-bud opacities at the lung bases may relate to chronic aspiration or infectious bronchiolitis. 6. Additional findings as above. Electronically signed by: Darrian Hernandez M.D. 03/16/2019 8:26 PM ECG Data Attestation: I personally reviewed and interpreted this ECG as follows: Indication: abdominal pain Rate (beats per minute): 73 Rhythm: normal sinus Findings: + other (Normal axis); no PAC, no PVC and no acute ischemic change Blood Pressure Blood Pressure Findings: Elevated blood pressure Blood Pressure Disposition: further management by hospitalist GIOVANNY Dumont The patient is a pleasant 73-year-old woman from [facility] with limited Urdu with interpretation provided by friend at bedside with her permission with a past medical history of pancreatitis and recurrent bowel obstruction, prior surgery of esophagectomy with gastric pull through in 10/2017, renal stones who presents to the emergency department with abdominal pain and nausea per hpi. The patient is uncomfortable but no acute distress, afebrile stable vital signs. On exam the patient has mild epigastric tenderness without guarding or rebound. EKG without overt acute ischemia. Chest x-ray negative for acute process. W BC, H/H and platelets within normal limits. Chemistry without acidosis. Electrolytes and LFTs unremarkable. Troponin negative. UA without evidence of infection. CT abdomen pelvis performed and demonstrates similar findings to patient's previous partial bowel obstruction although there is some question of increased bowel edema. Evaluation the patient reports feeling significant improved with resolution of her pain though on exam she still has residual tenderness. Case was discussed with general surgery, Dr. Pierce, who did evaluate the patient at the bedside and agrees with plan for admission to medicine for conservative management and supportive care. Unlikely to require surgical inter vention. Of note the patient does have renal stones with partial obstruction identified however she does not appear to be symptomatic from the stones. Of note on the patient's prior admission she did have her left-sided ureteral stone with hydronephrosis however she reports this pain had resolved and she preferred to follow-up with her providers upon returning to [facility] in May. Case was discussed with Dr. Miles, [facility] hospitalist, who will evaluate the patient for admission. Impression & Plan Partial bowel obstruction, Abdominal pain, Nausea, Hydronephrosis concurrent with and due to calculi of kidney and ureter Discharge Plan Visit Data *Final* Discharge Date/Time: 03/17/19 00:08 Chief Complaint: Abdominal Pain Stated Complaint: BACK ACHE,STOMACH PAIN,MUCOUS ED Provider: Gary Banerjee Discharge Problem: Partial bowel obstruction, Abdominal pain, Nausea, Hydronephrosis concurrent with and due to calculi of kidney and ureter Patient Disposition: Admitted As Inpatient Discharge Instructions Interventions: ED Discharge Assessment Last Done: 03/17/19 00:08 Discharge Problem: Partial bowel obstruction Qualifiers: Intestinal obstruction type: unspecified Qualified Code(s): K56.600 - Partial intestinal obstruction, unspecified as to cause Abdominal pain Qualifiers: Abdominal location: unspecified location Qualified Code(s): R10.9 - Unspecified abdominal pain The scribe's documentation has been prepared under my direction and personally reviewed by me in its entirety. I confirm that the note above accurately reflects all work, treatment, procedures, and medical decision making performed by me.
[2019-03-17] MEDS ORDERED: ONDANSETRON INJ 2 MG/ML 2 ML VIAL IV PRN (01:05)
[2019-03-17] MEDS ORDERED: ACETAMINOPHEN 1,000 MG/100 ML VIAL IV PRN (01:05)
[2019-03-17] MEDS ORDERED: POLYETHYLENE (MIRALAX) 17 GM PACK PO PRN (01:05)
[2019-03-17] MEDS ORDERED: ALUMINUM/MAGNESIUM SUSP 30 ML UDC PO PRN (01:05)
[2019-03-17] MEDS ORDERED: MAGNESIUM HYDROXIDE SUSP 30 ML UDC PO PRN (01:05)
[2019-03-17] MEDS ORDERED: ACETAMINOPHEN IV PRN (01:45)
[2019-03-17] MEDS: D5W AND 1/2NSS + 20MEQ KCL 20 MEQ/1,000 ML BAG IV SCH ×2 (01:55→13:53)
[2019-03-17 06:04] LABS: BUN Creatinine Ratio 20.4 (10-20); Calcium 8.1 mg/dl (8.5-10.1); Creatinine Clr Calc Pharmacy 41.8 ml/min; Est GFR (African American) 97.7; Est GFR (Non-African American) 84.3; Potassium 4.2 mmol/L (3.5-5.1)
--- NOTE | 2019-03-17 07:07 | XRay Report ---
XR KUB/Abdomen 1 view CLINICAL HISTORY: Small bowel obstruction COMPARISON STUDY: 01/01/2019, CT scan dated 03/16/2019 FINDINGS: There is no pathologic bowel dilatation. There is evidence for contrast within the right re nal collecting system and bladder secondary to a prior CT scan. There is a 5 mm proximal left uretera l calculus and 3 mm proximal right ureteral calculus. There is mild to moderate right-sided hydroneph rosis. IMPRESSION: 1. No evidence of pathologic bowel dilatation 2. Bilateral proximal ureteral calculi. Mild to moderate right-sided hydronephrosis. Electronically signed by: Kayden Hernandez M.D. 03/17/2019 7:05 AM
[2019-03-17] MEDS ORDERED: FAMOTIDINE 20 MG in SYRINGE 3 ML IV SCH (09:00)
--- NOTE | 2019-03-17 09:28 | Gastrointestinal Consultation ---
Date of Consultation March 17, 2019 Assessment & Plan (1) History of esophagectomy: 74 year old mandarin speaking female w/ history of eso CA s/p esophagectomy w/ gastric pull through admitted w/ epigastric abd pain, nausea/vomiting w/ CT evidence of intussusception in the left mid abdomen with greater downstream small bowel wall thickening w/ interval development of colonic wall thickening in the left colon extending to the rectum, possible colitis. She denies any diarrheal illness, black/bloody stools or weight loss. She tells me she is traveling back to [facility] in about 2/3 week and will remain there until early spring. She prefers to have her non-emergent medical care when she is back in [facility] as there will be more family and friends around to help her. Will review imaging w/ attending Management per general surgery Antiemetics PRN Analgesia PRN Omeprazole 20 mg daily Consider small bowel follow through prior to discharge She will arrange follow up in [facility] (She should take copies of her CT's. She may require surgical exploration if abnormal area of small bowel does not resolve on follow up CT) I encouraged her to obtain a hard copy if her medical records from [place] before traveling Thank you for allowing us to participate in the care of this patient. Please call with any acute changes, questions or concerns. Please see addendum below with additional recommendation from my supervising physician. Present on Admission?: Yes (2) Partial bowel obstruction: Present on Admission?: Yes Supervising Physician Co-Signing Physician Notes I have performed a history and physical examination of this patient and reviewed the electronic medical record. Specifically, on physical examination abdomen is soft, non tender with normal bowel sounds. I have discussed the case with KATIE Mathias. The above note reflects my findings, conclusions, and recommendations. Sohail Harris MD History of Present Illness Reason for Consultation: recurrent SBO Requesting Physician: Stan Attending Physician: Humberto Mariano MD History of Present Illness 73 year old female with history of esophageal cancer, status post distal esophagectomy in October 2017 in [place] who presented through the ED for evaluation of abdominal pain - CT evidence of SBO admitted for management. GI asked to evaluate. Pt was seen and evaluated, chart reviewed. Upon initial evaluation pt was alone in room. [employer] translation services utilized. Pt notes she had an EGD/Colon arranged [id number] for abd/pain GERD. It is reported through her chart that she had a esophageal CA however she suggests to me she had severe esophagitis and surgery was recommended. Since the surgery, she notes chronic issues with GERD. She was maintained on PPI daily but suggests she ran out about two months ago. SInce, has had worsening UGI symptoms w/ reflux, regurgitation, burning. Yesterday, developed severe epigastric abdominal pain, associated w/ emesis. Nonbloody. No change in BM. Is passing gas. Last stool was prior to arrival. Today, abd pain is improved. No nausea, vomiting. No BM. CT: Mild wall thickening of the rectum, which extends proximally to involve the left colon. This is slightly increased from prior. There is a focal intussusception in the left abdomen within the jejunum resulting in obstruction. This configuration was present on the prior exam. There is greater associated downstream wall thickening of small bowel. Postsurgical changes of esophagectomy with anterior mediastinal gastric pull through. The appendix is normal. Allergies Allergy/AdvReac Type Severity Reaction Status Date / Time clindamycin AdvReac Severe SEE COMMENT Verified 03/16/19 23:36 alendronate sodium AdvReac Intermediate STOMACH Verified 03/16/19 23:36 [From Fosamax] PAIN Home Medications Home Medications Medication Instructions Recorded Confirmed Type docusate sodium [Colace] 100 mg PO BID #1 cap 01/02/19 03/16/19 Rx potassium chloride 20 meq PO DAILY #1 tab 01/02/19 03/16/19 Rx benzonatate [Tessalon Perles] 100 mg PO TID PRN 03/16/19 03/16/19 History cholecalciferol (vitamin D3) 2,000 unit PO DAILY 03/16/19 03/16/19 History [Vitamin D3] cyanocobalamin (vitamin B-12) 500 mcg PO DAILY 03/16/19 03/16/19 History [Vitamin B-12] zolpidem [Ambien] 5 mg PO HS PRN 03/16/19 03/16/19 History Patient History Medical History History of esophageal cancer (Chronic) Small bowel obstruction (Acute) Esophageal carcinoma Status post esophagectomy in October 2017 HLD (hyperlipidemia) Multiple lung nodules Multiple thyroid nodules Benign per biopsy results Osteoporosis ST segment changes on electrocardiogram Small bowel obstruction Surgical History History of esophagectomy (Chronic) History of esophagectomy October 2017, entire [facility] Family History Other Family history non-contributory Social History Preferred Language: Mandarin Macedonian Communication Ability: Effective Communication Tools: IPad and Other Metabolic Specialist Required: Yes Beliefs That Will Affect Care: None Current Living Situation: Alone and Family Feels Safe at Home: Yes Safety Concerns: Feels Safe At This Time Smoking Status: Never smoker Second Hand Exposure: No ; Hx Alcohol Use: No Hx Substance Use: No Review of Systems Constitutional: no fever and no chills Respiratory: no cough and no dyspnea Cardiovascular: no chest pain, no radiating jaw, neck or arm pain and no dyspnea on exertion Gastrointestinal: + heartburn; no abdominal pain, no nausea, no vomiting, no hematemesis, no dysphagia, no blood in stools and no melena Physical Exam Constitutional: no acute distress and not ill appearing Respiratory: normal respiratory effort Cardiovascular: Rate/Rhythm: regular rate Gastrointestinal (Abdomen): Inspection/Auscultation: normal bowel sounds Percussion/Palpation: abdomen soft; abdomen nontender, no guarding and abdomen not rigid Skin: no rashes, warm and dry Results & Data Vital Signs (Past 12 Hours) Vital Signs Temp Pulse Pulse Resp BP BP BP 03/17/19 07:41 37.3 C 75 14 144/75 H 03/17/19 00:26 37 C 77 14 91/63 L 03/17/19 00:00 72 18 112/62 03/16/19 23:00 73 18 116/56 L 03/16/19 22:37 03/16/19 22:34 72 18 126/57 L 03/16/19 22:20 75 13 03/16/19 22:10 74 18 Pulse Ox 03/17/19 07:41 98 03/17/19 00:26 98 03/17/19 00:00 97 03/16/19 23:00 97 03/16/19 22:37 97 03/16/19 22:34 97 03/16/19 22:20 97 03/16/19 22:10 98 (1) Partial bowel obstruction Intestinal obstruction type: unspecified Qualified Code(s): K56.600 - Partial intestinal obstruction, unspecified as to cause
--- NOTE | 2019-03-17 10:57 | Surgery Progress Note ---
Date of Service March 17, 2019 Assessment & Plan (1) Partial bowel obstruction: XR improved exam benign can probably have clears soon although she prefers water for now Dr Pierce- examined pt 03/17 in room- no N/V, trang some clear liquids wants to go home. cont current mgt will need copies of CT scans and d/c summaries to take to [place] Subjective no BM, denies abdominal pain, not hungry, sips of water Physical Exam Gastrointestinal (Abdomen): Inspection/Auscultation: abdomen not distended Percussion/Palpation: abdomen soft; abdomen nontender Results & Data Vital Signs (Past 12 Hours) Vital Signs Temp Pulse Pulse Resp BP BP BP 03/17/19 07:41 37.3 C 75 14 144/75 H 03/17/19 00:26 37 C 77 14 91/63 L 03/17/19 00:00 72 18 112/62 03/16/19 23:00 73 18 116/56 L Pulse Ox 03/17/19 07:41 98 03/17/19 00:26 98 03/17/19 00:00 97 03/16/19 23:00 97 PG Care Time/CCT Total # of Minutes Spent Total Time Spent with Patient: Total time spent is greater than 50% in coordination of care (as documented) at patient's floor/unit and/or counseling patient: (1) Partial bowel obstruction Intestinal obstruction type: unspecified Qualified Code(s): K56.600 - Partial intestinal obstruction, unspecified as to cause
--- NOTE | 2019-03-17 13:05 | Hospitalist Progress Note ---
Date of Service March 17, 2019 Assessment & Plan (1) Partial bowel obstruction: -abdominal pain improved, only a bit tender today -Chest x-ray appears like an enlargement of the cardiopericardial silhouette, however CT abdomen pelvis reveals postsurgical changes of esophagectomy with anterior mediastinal gastric pull-through at the level of where the cardiac silhouette would be. Negative for cardiomegaly or pericardial effusion or pleural effusion. -CT scan of the abdomen goes on to show redemonstration of intussusception in the left mid abdomen with greater downstream small bowel wall thickening. Degree of obstruction is unchanged. Interval development of colonic wall thickening in the left colon extending to the rectum, possible colitis. -Seen by general surgery in the ED - no indication for surgery at this time, may advance to clears -KUB improving -Follow BMP (2) Hydronephrosis concurrent with and due to calculi of kidney and ureter: On CT abd/pelvis -Redemonstration of partially obstructing 7 mm proximal left ureteral calculus with mild left hydronephrosis which is chronic. h/o urological procedure in [facility], possible lithotripsy in past. -Declined lithotripsy at last admission, was seen by [facility] urology - kidney function is stable - Consult urology (3) History of esophagectomy: Consulted GI: - continue PPI - Consider small bowel follow through prior to discharge - She will arrange EGD/Colonoscopy in [facility] which she will be returning to in 2-3 weeks (4) DVT prophylaxis: SCDs Subjective Ms. Warren reports feeling better. She is passing gas, no bowel movement. No nausea. She is not hungry but states that since her esophageal surgery she has not really had much of an appetite. She is drinking water. Mild abdominal tenderness but no pain. ROS Constitutional: no chills, aches, sweats or fever Respiratory: no sob,cough, sputum, or wheezing Cardiac: no chest pain, palpitations, edema, orthopnea or lightheadedness GI: no abdominal pain, nausea, vomiting, diarrhea or constipation : no dysuria or hesitancy Extremities: no joint pain or weakness Skin: no rash All other systems reviewed and negative Physical Exam Physical Exam: General: no distress Eyes: normal inspection, PERLL Respiratory: chest non tender, clear to auscultation, normal breath sounds, no respiratory distress, no accessory muscle use Cardiac: regular rate and rhythm, no rub or gallop, no murmur, no edema, no jvd GI/: active bowel sounds, mild abd tenderness, soft, non distended Extremities: normal range of motion, normal strength, non tender Neuro/Psych: alert and oriented x 3, normal mood and affect Skin: normal color, dry Results & Data Vital Signs (Past 12 Hours) Vital Signs Temp Pulse Resp BP Pulse Ox 03/17/19 07:41 37.3 C 75 14 144/75 H 98 PG Care Time/CCT Total # of Minutes Spent Total Time Spent with Patient: Total time spent is greater than 50% in coordination of care (as documented) at patient's floor/unit and/or counseling patient: (1) Partial bowel obstruction Intestinal obstruction type: unspecified Qualified Code(s): K56.600 - Partial intestinal obstruction, unspecified as to cause
--- NOTE | 2019-03-17 16:00 | Urology Consultation ---
Date of Consultation March 17, 2019 Assessment & Plan (1) Hydronephrosis concurrent with and due to calculi of kidney and ureter: 73yo F with partial SBO, bilateral ureteral stones and hydronephrosis. Used wood buffer to conduct interview with patient. Pain is controlled, nontoxic. Stable from perspective. UC&S pending. Patient very adamant does not wish to have surgical intervention to treat her stones. I explained the procedure to her, she understands and accepts risks including infection and kidney failure. She wishes to follow with her urologist in [facility] in 2 weeks. She states she has noone here to help care for her after surgery. Please reconsult if patient develops fever >101F, intractable flank or emesis. Otherwise, we will respect her wishes and plan to followup with urologist in [facility]. Please send pt with records and CT images when discharged. Pt History of Present Illness Reason for Consultation: stones Requesting Physician: Dr. Mariano Attending Physician: Humberto Mariano MD History of Present Illness This is a 73-year-old [place]e female with pmx esophagela cancer s/p distal esophagectomy in October 2017 admitted with persistent severe epigastric abdominal pain x1 day. GI and General surgery on board. we were consulted to assist with CT findings of bilateral ureteral stones, with moderate hydro. Left UPJ stone persisting since January, plan was for ESWL at that time however not followed through. Now also with small right ureteral stones. Pt resting comfortably in litter, nontoxic. Reports some epigastric discomfort but largely improved since admissin. No flank pain or dysuria. No hematuria. Labs reviewed Cr and WBC wnl. UA +1 bacteria but nitrite negative, some epis. >30rbc as expected Allergies Allergy/AdvReac Type Severity Reaction Status Date / Time clindamycin AdvReac Severe SEE COMMENT Verified 03/16/19 23:36 alendronate sodium AdvReac Intermediate STOMACH Verified 03/16/19 23:36 [From Fosamax] PAIN Home Medications Home Medications Medication Instructions Recorded Confirmed Type docusate sodium [Colace] 100 mg PO BID #1 cap 01/02/19 03/16/19 Rx potassium chloride 20 meq PO DAILY #1 tab 01/02/19 03/16/19 Rx benzonatate [Tessalon Perles] 100 mg PO TID PRN 03/16/19 03/16/19 History cholecalciferol (vitamin D3) 2,000 unit PO DAILY 03/16/19 03/16/19 History [Vitamin D3] cyanocobalamin (vitamin B-12) 500 mcg PO DAILY 03/16/19 03/16/19 History [Vitamin B-12] zolpidem [Ambien] 5 mg PO HS PRN 03/16/19 03/16/19 History Patient History Medical History History of esophageal cancer (Chronic) Small bowel obstruction (Acute) Esophageal carcinoma Status post esophagectomy in October 2017 HLD (hyperlipidemia) Multiple lung nodules Multiple thyroid nodules Benign per biopsy results Osteoporosis ST segment changes on electrocardiogram Small bowel obstruction Surgical History History of esophagectomy (Chronic) History of esophagectomy October 2017, entire [facility] Family History Other Family history non-contributory Social History Preferred Language: Mandarin English Communication Ability: Effective Communication Tools: IPad and Other Medical Laboratory Technical Officer Required: Yes Beliefs That Will Affect Care: None Current Living Situation: Alone and Family Feels Safe at Home: Yes Safety Concerns: Feels Safe At This Time Smoking Status: Never smoker Second Hand Exposure: No ; Hx Alcohol Use: No Hx Substance Use: No Review of Systems Review of Systems: All systems reviewed & are unremarkable except as noted in HPI & below Physical Exam Constitutional: no acute distress and not ill appearing Eyes: no nystagmus ENMT: Ears: no hearing impairment Neck: trachea midline Respiratory: no respiratory distress and no cough Cardiovascular: Vessels: no JVD Chest (Breasts): Chest: normal inspection of chest Gastrointestinal (Abdomen): Inspection/Auscultation: abdomen not distended and no abdominal edema Percussion/Palpation: abdomen soft; abdomen nontender Musculoskeletal: Head/Neck/Chest: normocephalic and head atraumatic Skin: no rashes, warm and dry Neurologic: awake; not confused and not obtunded Psychiatric: Orientation: alert and oriented x 3 Eye Contact: good eye contact Affect: no depressed affect Lymphatic: no lymphadenopathy and no lymphedema Results & Data Vital Signs (Past 12 Hours) Vital Signs Temp Pulse Resp BP Pulse Ox 03/17/19 15:14 37.3 C 73 17 101/59 L 98 03/17/19 07:41 37.3 C 75 14 144/75 H 98 PG Care Time/CCT Total # of Minutes Spent Total Time Spent with Patient: Total time spent is greater than 50% in coordination of care (as documented) at patient's floor/unit and/or counseling patient:
[2019-03-18] MEDS: D5W AND 1/2NSS + 20MEQ KCL 20 MEQ/1,000 ML BAG IV SCH ×2 (02:25→13:47)
--- NOTE | 2019-03-18 06:49 | Progress Note ---
Date of Service March 18, 2019 Assessment & Plan (1) Partial bowel obstruction: no N/V, trang some clear liquids passing flatus, min abd pain will try full liquids Intestinal obstruction type: unspecified Qualified Code(s): K56.600 - Partial intestinal obstruction, unspecified as to cause Results & Data Vital Signs (Past 12 Hours) Vital Signs Temp Pulse Resp BP Pulse Ox 03/17/19 23:29 37.0 C 60 14 109/62 98 PG Care Time/CCT Total # of Minutes Spent Total Time Spent with Patient: Total time spent is greater than 50% in coordination of care (as documented) at patient's floor/unit and/or counseling patient:
[2019-03-18 06:58] LABS: BUN Creatinine Ratio 9.1 (10-20); Calcium 7.3 mg/dl (8.5-10.1); Creatinine Clr Calc Pharmacy 48.6 ml/min; Est GFR (African American) 105.1; Est GFR (Non-African American) 90.7; Potassium 3.8 mmol/L (3.5-5.1)
--- NOTE | 2019-03-18 07:25 | XRay Report ---
XR KUB/Abdomen 1 view CLINICAL HISTORY: SBO URETERAL CALCULI COMPARISON STUDY: 03/17/2019 FINDINGS: There is no pathologic bowel dilatation. Multiple right renal calculi are visualized. There is no change in the position of the proximal left ureteral calculus. The previously identified proxi mal right ureteral calculus is no longer visualized. The right collecting system is no longer visuali zed. IMPRESSION: 1. No evidence of pathologic bowel dilatation 2. No change in the position the proximal left ureteral calculus 3. Nonvisualization of previously identified proximal right ureteral calculus 4. Right-sided nephrolithiasis Electronically signed by: Kayden Hernandez M.D. 03/18/2019 7:24 AM
[2019-03-18] MEDS ORDERED: PANTOprazole 40 MG TAB PO SCH (09:00)
[2019-03-18] MEDS ORDERED: CHOLECALCIFEROL 1,000 UNITS TAB PO SCH (12:45)
[2019-03-18] MEDS ORDERED: CYANOCOBALAMIN 500 MCG TABLET (VITAMIN B-12) PO SCH (12:45)
[2019-03-18] MEDS ORDERED: CALCIUM GLUCONATE 10% 1,000 MG in SODIUM CHLORIDE 0.9% 50 ML IV ONE (15:30)
--- NOTE | 2019-03-18 16:54 | Discharge Summary ---
Date of Service March 18, 2019 Admission HPI Per Admitting Provider This is a 73-year-old female who presents with persistent severe epigastric abdominal pain x1 day with emesis. Intolerance of solids or liquids. PMH of esophageal cancer, status post distal esophagectomy in October 2017 in [facility]. Normal BM x 1 this am. Denies dysuria, hematuria, hematemesis, melena, diarrhea. Endorses epigastric "tightness". History given via i-pad business banking relationship manager. Pt speaks Mandarin. ED course: famotidine, IV tylenol, NSS, compazine Principal Diagnosis Partial small bowel obstruction Discharge Exam Constitutional WD/WN, vitals as above Respiratory normal respiratory effort, lungs clear to auscultation Cardiovascular RRR, no murmur, no edema Gastrointestinal (Abdomen) Inspection/Auscultation: abdomen normal to inspection and normal bowel sounds; abdomen not distended Percussion/Palpation: abdomen soft; abdomen nontender Musculoskeletal no cyanosis or clubbing, extremities motor strength 5/5 Skin no rashes, warm and dry Neurologic moves all extremities and awake Psychiatric A+Ox3, euthymic affect Discharge Data Allergies Allergy/AdvReac Type Severity Reaction Status Date / Time clindamycin AdvReac Severe SEE COMMENT Verified 03/16/19 23:36 alendronate sodium AdvReac Intermediate STOMACH Verified 03/16/19 23:36 [From Fosamax] PAIN Consultations 03/16/19 22:59 ED Decision to Admit Stat 03/17/19 01:05 Consult General Surgery Routine 03/17/19 05:41 Consult Gastroenterology Routine 03/17/19 13:02 Consult Urology Routine Ordered Studies 03/16/19 19:00 CT abd pelvis IV con only Stat Hospital Course (1) Partial bowel obstruction: Interview conducted with ipad business banking relationship manager as patient speaks some Bengali but is primarily a Mandarin speaker: -abdominal pain improved -Chest x-ray appears like an enlargement of the cardiopericardial silhouette, however CT abdomen pelvis reveals postsurgical changes of esophagectomy with anterior mediastinal gastric pull-through at the level of where the cardiac silhouette would be. Negative for cardiomegaly or pericardial effusion or pleural effusion. -CT scan of the abdomen goes on to show redemonstration of intussusception in the left mid abdomen with greater downstream small bowel wall thickening. Degree of obstruction is unchanged. Interval development of colonic wall thickening in the left colon extending to the rectum, possible colitis. -Seen by general surgery in the ED - no indication for surgery at this time, may advance to clears -KUB improving - bowel movement yesterday per patient, tolerating full liquids, feels ready to go home. (2) Abdominal pain: resolved (3) Nausea: resolved (4) History of esophagectomy: Consulted GI: - continue PPI - She will arrange EGD/Colonoscopy in [facility] which she will be returning to in 2-3 weeks (5) Left ureteral stone: with hydronephrosis Consulted urology - patient declines intervention at this time and will follow up in [facility] when she goes home in a few weeks. She should call her provider if fever >101F, intractable flank or emesis (6) Hypocalcemia: 1 amp calcium gluconate for calcium of 7.4 Total Time Total Time Spent Total Time Spent (In Minutes): greater than 30 minutes Discharge Plan Discharge Items Patient Disposition: Home - Self-Care Reason For Visit: SBO Discharge Diagnosis: Partial small bowel obstruction Activity: Resume your previous activity Non-emergency contact: Primary Care Provider Call non-emergency contact if: you have any medication questions, your symptoms worsen, your pain is not controlled and you have a fever Follow-up/Referrals: Cesar Michelle MD [Primary Care Provider] - Diet: Low Fiber and Low Fat Diet Comment: Advance your diet as tolerated Addtl Attending Provider Instructions: Please see your primary care provider within a week. Please call your doctor if you develop fever >101F, intractable flank or emesis which would indicate that your ureteral kidney stone has moved and may be causing a blockage or infection. Pending Studies at Discharge: No Stand-Alone Forms: Call Back Authorization, [facility] Medications and DC Order Prescriptions: Continued cyanocobalamin (vitamin B-12) [Vitamin B-12] 500 mcg Tablet 500 mcg PO DAILY RF: 0 benzonatate [Tessalon Perles] 100 mg Capsule 100 mg PO TID PRN (Reason: Cough) RF: 0 zolpidem [Ambien] 5 mg Tablet 5 mg PO HS PRN (Reason: Sleep) RF: 0 cholecalciferol (vitamin D3) [Vitamin D3] 2,000 unit Capsule 2,000 unit PO DAILY RF: 0 docusate sodium [Colace] 100 mg capsule 100 mg PO BID Qty: 1 RF: 0 potassium chloride 20 mEq tablet extended release 20 meq PO DAILY Qty: 1 RF: 0 Discharge Orders: Discharge Order (Routine); Ordered 03/18/19 Ordered By: Bhakti Castellano Admission Data Admit Date/Time: 03/16/19 23:41 Attending Provider: Humberto Mariano Admit Provider: Sonja Muñiz Primary Care Provider: Cesar Michelle Other Providers: Gustavo Miles ; Fran Pierce ; Humaira Almonte ; Xaio Awad ; Zulema Fuentes ; Jh So ; David Haywood ; Olayinka Sher ; Deonna Ramirez ; Sohail Harris ; Anders Ferguson ; Vee Lloyd ; Cassi Bolden ; Cindi Hernández ; Yuli Heard ; Henrietta Dumont ; Nathaniel Reyes II
[2019-03-18 16:58] LABS: Albumin Level 2.8 gm/dl (3.4-5.0); Bilirubin Direct 0.2 mg/dl (0-0.2); Bilirubin,Total 0.6 mg/dl (0.2-1)
== END 2019-03-18 18:24 | disposition home or self-care (01) | DRG 389 ==
LOC: ED 18:15 → 3W 23:41 → SUATTDRO 23:41 → 3W 03-17 00:08